=== PATIENT | male | born 1970 | race Hispanic/Latino ===

== ENCOUNTER 2018-10-18 01:01 | Emergency (ER) | payer OTHER ==
[2018-10-18 02:13] LABS: #Eosinphils 0.5 thou/uL (0.0-0.7); #Lymphocytes 1.2 thou/uL (1.20-3.40); #Monocytes 0.6 thou/uL (0.11-0.59); #Neutrophils 5.6 thou/uL (1.40-6.50); %Basophils 0.2 % (0.0-1.0); %Eosinophils 6.7 % (0.0-10.0); %Lymphocytes 15.4 % (21.0-51.0); %Neutrophils 70.8 % (42.0-75.0); Hemoglobin 8.3 g/dL (14.0-18.0); Mean Corpuscular HGB CONC 33.1 g/dL (32.0-36.0); Mean Corpuscular Hemoglobin 30.9 pg (27.0-31.0); Mean Corpuscular Volume 93.5 fL (78.0-98.0); Mean Platelet Volume 7.4 fL (7.4-10.4); Platelet Count 201 thou/uL (130-400); RBC Distribution Width 12.1 % (11.5-14.5); Red Blood Cell (RBC) Count 2.69 mill/uL (4.70-6.10)
[2018-10-18 02:33] LABS: ALT (SGPT) 17 U/L (8-55); AST (SGOT) 27 U/L (5-34); Albumin 2.8 g/dL (3.5-5.0); Alkaline Phosphatase 171 U/L (40-150); Anion Gap 12 mmol/L (10-20); BUN (Urea Nitrogen) 63 mg/dL (8.9-20.6); Bilirubin, Total 0.2 mg/dL (0.2-1.2); Calc. Creatinine Clearance 0 mL/min (70-130); Calcium 8.1 mg/dL (7.8-10.44); Carbon Dioxide 20 mmol/L (22-29); Chloride 107 mmol/L (98-107); Estimated GFR-MDRD 9; Globulin 2.9 g/dL (2.4-3.5); Glucose 67 mg/dL (70-105); Potassium 4.2 mmol/L (3.5-5.1); Protein, Total 5.7 g/dL (6.0-8.3); Sodium 135 mmol/L (136-145)
[2018-10-18] MEDS ORDERED: hydrALAZINE 25 MG TAB ONE (03:04)
== END 2018-10-18 04:43 | disposition home or self-care (01) ==
LOC: ERS 01:01
DX: E11.649 Type 2 diabetes mellitus with hypoglycemia without coma (principal); E11.319 Type 2 diabetes mellitus with unspecified diabetic retinopathy without macular edema; I10 Essential (primary) hypertension; Z79.84 Long term (current) use of oral hypoglycemic drugs; Z79.899 Other long term (current) drug therapy
CPT/HCPCS: 36416; 80053; 85025; 99283

== ENCOUNTER → 2019-07-02 | Day surgery (SDC) | payer BC, MEDICARE ==
[2019-06-29 10:52] VITALS: BMI 27.8
[~2019-07-02] MED LIST: Acetaminophen 500 MG TAB ONE; Iopamidol 370 76% 100 ML VIAL ONE; hydrALAZINE 20 MG/ML VIAL ONE
[2019-07-02 06:57] LABS: #Eosinphils 0.9 thou/uL (0.0-0.7); #Lymphocytes 1.1 thou/uL (1.20-3.40); #Monocytes 1.4 thou/uL (0.11-0.59); #Neutrophils 8.1 thou/uL (1.40-6.50); %Basophils 0.1 % (0.0-1.0); %Eosinophils 7.8 % (0.0-10.0); %Lymphocytes 9.9 % (21.0-51.0); %Monocytes 11.9 % (0.0-10.0); %Neutrophils 70.4 % (42.0-75.0); Hemoglobin 10.3 g/dL (14.0-18.0); Mean Corpuscular Hemoglobin 29.5 pg (27.0-31.0); Mean Corpuscular Volume 89.4 fL (78.0-98.0); Mean Platelet Volume 7.2 fL (7.4-10.4); Platelet Count 240 thou/uL (130-400); RBC Distribution Width 13.6 % (11.5-14.5); White Blood Cell (WBC) Count 11.5 thou/uL (4.8-10.8)
[2019-07-02 07:16] LABS: ALT (SGPT) 15 U/L (8-55); AST (SGOT) 12 U/L (5-34); Albumin 2.9 g/dL (3.5-5.0); Alkaline Phosphatase 157 U/L (40-110); Anion Gap 20 mmol/L (10-20); BUN (Urea Nitrogen) 85 mg/dL (8.9-20.6); Bilirubin, Total 0.4 mg/dL (0.2-1.2); Calc. Creatinine Clearance 8 mL/min (70-130); Calcium 7.2 mg/dL (7.8-10.44); Carbon Dioxide 22 mmol/L (22-29); Chloride 99 mmol/L (98-107); Estimated GFR-MDRD 4; Globulin 3.3 g/dL (2.4-3.5); Glucose 108 mg/dL (70-105); Potassium 3.7 mmol/L (3.5-5.1); Protein, Total 6.2 g/dL (6.0-8.3); Sodium 137 mmol/L (136-145)
== END ==
LOC: CCL 06:14
PROVIDERS: ATTEND Internal Medicine Cardiovascular Disease
PROC: 4A023N7 Measurement of Cardiac Sampling and Pressure, Left Heart, Percutaneous Approach (ICD-10-PCS; principal; 2019-07-02)
PROC: B2111ZZ Fluoroscopy of Multiple Coronary Arteries using Low Osmolar Contrast (ICD-10-PCS; principal; 2019-07-02)
DX: I25.10 Atherosclerotic heart disease of native coronary artery without angina pectoris (principal); I42.9 Cardiomyopathy, unspecified; I13.2 Hypertensive heart and chronic kidney disease with heart failure and with stage 5 chronic kidney disease, or end stage renal disease; E11.21 Type 2 diabetes mellitus with diabetic nephropathy; E11.22 Type 2 diabetes mellitus with diabetic chronic kidney disease; N18.6 End stage renal disease; I50.9 Heart failure, unspecified; E78.5 Hyperlipidemia, unspecified; Z79.899 Other long term (current) drug therapy
CPT/HCPCS: 36415; 76942; 80053; 85025; 93454; C1760; C1769; J0360; J1644; Q9967

== ENCOUNTER 2020-01-08 10:55 | Inpatient (IN) | payer BC, MEDICARE, OTHER ==
[~2020-01-08 10:55] MED LIST changes: -Acetaminophen 500 MG TAB ONE; +Heparin 10,000 UNITS/ 10 ML VIAL ONE; -Iopamidol 370 76% 100 ML VIAL ONE; -hydrALAZINE 20 MG/ML VIAL ONE
[2020-01-08] MEDS ORDERED: Acetaminophen 650 MG Suppository PR PRN (18:10)
[2020-01-08] MEDS ORDERED: Acetaminophen 325 MG TAB PO PRN (18:10)
[2020-01-08 18:28] LABS: #Eosinphils 0.5 thou/uL (0.0-0.7); #Lymphocytes 1.1 thou/uL (1.20-3.40); #Monocytes 0.8 thou/uL (0.11-0.59); #Neutrophils 6.6 thou/uL (1.40-6.50); %Basophils 0.5 % (0.0-1.0); %Eosinophils 5.2 % (0.0-10.0); %Lymphocytes 11.8 % (21.0-51.0); %Monocytes 9.3 % (0.0-10.0); %Neutrophils 73.2 % (42.0-75.0); Hemoglobin 11.4 g/dL (14.0-18.0); Mean Corpuscular HGB CONC 31.4 g/dL (32.0-36.0); Mean Corpuscular Hemoglobin 28.9 pg (27.0-31.0); Mean Corpuscular Volume 92.2 fL (78.0-98.0); Platelet Count 198 thou/uL (130-400); RBC Distribution Width 15.5 % (11.5-14.5); Red Blood Cell (RBC) Count 3.93 mill/uL (4.70-6.10); White Blood Cell (WBC) Count 9.1 thou/uL (4.8-10.8)
[2020-01-08 18:37] LABS: INR-International Normal Ratio 1.2; PTT 38.8 sec (22.9-36.1); Prothrombin Time 15.5 sec (12.0-14.7)
[2020-01-08 18:50] LABS: ALT (SGPT) 45 U/L (8-55); AST (SGOT) 30 U/L (5-34); Albumin 2.1 g/dL (3.5-5.0); Alkaline Phosphatase 299 U/L (40-110); Anion Gap 17 mmol/L (10-20); BUN (Urea Nitrogen) 45 mg/dL (8.9-20.6); Bilirubin, Total 0.4 mg/dL (0.2-1.2); Calc. Creatinine Clearance 0 mL/min (70-130); Calcium 7.4 mg/dL (7.8-10.44); Carbon Dioxide 26 mmol/L (22-29); Chloride 97 mmol/L (98-107); Estimated GFR-MDRD 7; Globulin 3.9 g/dL (2.4-3.5); Glucose 107 mg/dL (70-105); Magnesium 1.4 mg/dL (1.6-2.6); Potassium 4.6 mmol/L (3.5-5.1); Sodium 135 mmol/L (136-145)
[2020-01-08 19:29] VITALS: BMI 27.8
[2020-01-08] MEDS ORDERED: Dextrose 5% in Water 1,000 ML IV PRN (20:01)
[2020-01-08] MEDS ORDERED: Dextrose 50% Abboject 50 ML SYRINGE SLOW IVP PRN (20:01)
[2020-01-08] MEDS ORDERED: HumaLOG 300 UNITS/3 ML VIAL SC PRN ×2 (20:01)
--- NOTE | 2020-01-08 20:45 | PDOC.HHP ---
Hospitalist HPI - History of Present Illness Right 2nd 3rd and toe gangrene History of Present Illness: Patient seen by Dr. Mena today for follow-up of right 2nd and 3rd toe infections. He was referred to the hospital for admission as it appeared he developed gangrene and would require an amputation. Patient recently underwent an attempt at improving circulation in the right lower extremity via atherectomy with ballooning, done by Dr. Olivo on 11/29/2019. He was noted to have complete occlusion distally and said to be a poor candidate for revascularization. He has gradual worsening in the wounds with increased purulent weeping and now necrotic appearance. Of note he was recently treated for peritonitis and has been on antibiotics (ceftazadime and gentamicin) given at home with daily draining of fluid from his peritoneal catheter. He is under the care of Dr. House for ESRD and has been on peritoneal dialysis for a year. ROS: He reports having generalized fatigue but still remains semi-active at home. He walks around without any shortness of breath on exertion. Denies any chest pain. Has not had any recent fevers, chills or sweats. No headaches or dizziness. He reports mild abdominal discomfort at present due to not having peritoneal fluid drained yet today. Complains of fluctuating bowel movements which is chronic for him. He has chronic diarrhea with occasional episodes of diarrhea. Denies any melena or bright red blood in his stools. Has long standing lower leg edema. He still makes some urine. All other review of systems are negative. PAST MEDICAL HISTORY: 1. Diabetes mellitus, type 2. 2. Diabetic retinopathy with loss of vision in his left eye. 3. Diabetic neuropathy. 4. Peripheral arterial disease. 5. ESRD on PD, under the care of Dr. House. 6. CAD. 7. ISCMO. 8. Hyperlipidemia. 9. Peritonitis, currently on antibiotics, due to complete on 01/16/2020 (Gentamicin and Ceftazadime). 10. Hypertension. PAST SURGICAL HISTORY: 1. Left tractional retinal detachment. 2. Peritoneal dialysis catheter placement. 3. Renal cyst removed, 10/15/2019. 4. LHC 06/2019. 5. Renal cyst biopsy and ablation for focal area of RCC 10/15/2019. SOCIAL HISTORY: Patient lives at home with his family. His primary animal care giver is his daughter who assists with his medical care at home. FAMILY HISTORY: Father was diagnosed with diabetes. ALLERGIES: No known drug allergies. CURRENT MEDICATIONS: 1. Aspirin 81 mg PO daily. 2. Atorvastatin 40 mg PO daily. 3. Calcitriol 0.25 mcg PO daily. 4. Carvedilol PO daily. 5. Hydralazine 50 mg PO TID. 6. Lanthanum Carbonate 500 mg PO TID. 7. Losartan 100 mg PO daily. 8. K-Dur. 9. Timolol QAM. 10. Gentamicin via peritoneal catheter. 11. Ceftazadine via peritoneal catheter. - Exam General Appearance: NAD, awake alert Eye: PERRL, anicteric sclera ENT: normocephalic atraumatic, no oropharyngeal lesions, moist mucosa Neck: supple Heart: RRR, diminshed peripheral pulses (in bilateral feet) Respiratory: CTAB, no wheezes, no rales, no ronchi, normal chest expansion, no tachypnea Gastrointestinal: soft, no guarding, no rigidity, distended (mild, with peritoneal catheter in place, no erythema or discharge at insertion site.) Extremities: 2+ LE edema (involving bilateral legs and feet) Extremities - other findings: Dry Necrotic appearance to Rt lateral 1st toe, entire 2nd,3rd & 4th toes. Skin: no rashes Neurological: cranial nerve grossly intact (except reduced sensation in bi lateral feet due to neuropathy), normal sensation to touch, no weakness Musculoskeletal: normal tone, normal strength, no muscle wasting Psychiatric: normal affect, normal behavior, A&O x 3 Hospitalist Results - Labs Result Diagrams: 01/08/20 18:14 01/08/20 18:14 Lab results: WBC 9.1 thou/uL (4.8-10.8) 01/08/20 18:14 Hgb 11.4 g/dL (14.0-18.0) L 01/08/20 18:14 Hct 36.3 % (42.0-52.0) L 01/08/20 18:14 MCV 92.2 fL (78.0-98.0) 01/08/20 18:14 Plt Count 198 thou/uL (130-400) 01/08/20 18:14 Neutrophils % 73.2 % (42.0-75.0) 01/08/20 18:14 Sodium 135 mmol/L (136-145) L 01/08/20 18:14 Potassium 4.6 mmol/L (3.5-5.1) 01/08/20 18:14 Chloride 97 mmol/L (98-107) L 01/08/20 18:14 Carbon Dioxide 26 mmol/L (22-29) 01/08/20 18:14 BUN 45 mg/dL (8.9-20.6) H 01/08/20 18:14 Creatinine 7.97 mg/dL (0.7-1.3) H 01/08/20 18:14 Glucose 107 mg/dL (70-105) H 01/08/20 18:14 Calcium 7.4 mg/dL (7.8-10.44) L 01/08/20 18:14 Total Bilirubin 0.4 mg/dL (0.2-1.2) 01/08/20 18:14 AST 30 U/L (5-34) 01/08/20 18:14 ALT 45 U/L (8-55) 01/08/20 18:14 Alkaline Phosphatase 299 U/L (40-110) H 01/08/20 18:14 Serum Total Protein 6.0 g/dL (6.0-8.3) 01/08/20 18:14 Albumin 2.1 g/dL (3.5-5.0) L 01/08/20 18:14 Hospitalist H&P A/P - Problem (1) Gangrene of toe of right foot Code(s): I96 - GANGRENE, NOT ELSEWHERE CLASSIFIED Status: Acute Assessment and Plan: Per Dr. Mena, patient will undergo amputation likely tomorrow evening. Has advised boot fitting and consult for Dr. Olivo. Wound care consulted as well. (2) Peripheral arterial disease Code(s): I73.9 - PERIPHERAL VASCULAR DISEASE, UNSPECIFIED Status: Chronic (3) Bilateral lower extremity edema Code(s): R60.0 - LOCALIZED EDEMA Status: Chronic Assessment and Plan: BNP added onto labs. Will obtain bilateral venous doppler. (4) Peritonitis associated with peritoneal dialysis Status: Chronic Assessment and Plan: Consult placed to Dr. Lozada. Patient due to complete antibiotics on 01/16/2020. (5) ESRD on peritoneal dialysis Code(s): N18.6 - END STAGE RENAL DISEASE; Z99.2 - DEPENDENCE ON RENAL DIALYSIS Status: Chronic Assessment and Plan: Consult placed to Dr. House, nephrology, for continued PD. (6) Diabetes mellitus, type II Status: Chronic Qualifiers: Diabetes mellitus complication detail: with diabetic retinopathy Assessment and Plan: Monitor glucose. Initiate sliding scale. (7) Hypertension Code(s): I10 - ESSENTIAL (PRIMARY) HYPERTENSION Status: Chronic Assessment and Plan: Monitor BP. Reconcile home medications once verified. (8) Hyperlipidemia Code(s): E78.5 - HYPERLIPIDEMIA, UNSPECIFIED Status: Chronic Assessment and Plan: Resume home medications once verified. - Plan Plan: Will obtain baseline labs and baseline EKG. Surrogate decision maker is his : Sary Palafox.
[2020-01-08] MEDS ORDERED: Magnesium 2 GM/50 ML 2 GM in Premix Bag 1 BAG IVPB SCH (22:00)
[2020-01-08] MEDS ORDERED: Carvedilol 25 MG TAB PO SCH (23:45)
[2020-01-08] MEDS ORDERED: hydrALAZINE 25 MG TAB PO SCH (23:45)
--- NOTE | 2020-01-09 02:01 | CON ---
DATE OF CONSULTATION: 01/08/2020 He is currently admitted in-house patient in room 4433 in the [facility]. I do not have this patient's medical record number. PREOPERATIVE DIAGNOSIS: Gangrene 2nd and 3rd digits, right foot. HISTORY OF PRESENT ILLNESS: Mr. Palafox is a 49-year-old established office patient of mine admitted to [facility] today for gangrene of 2nd and 3rd digits, right foot. The patient has a history of diabetes and end-stage renal disease with peritoneal dialysis under the care of Dr. Chaves, Nephrology at [facility]. The patient is currently being treated for several months now for a gangrene of the right forefoot. Initially, the patient was seen for ulceration on the 2nd digit, right foot, which eventually progressed to become gangrene on the 2nd and 3rd digits of the right foot. The patient was treated in the office last few months with Betadine-soaked dressings. He underwent an angioplasty of the right lower extremity on November 29, [address] Anoop Olivo, Cardiovascular at [facility]. The patient is for the last 3 weeks being treated with IV antibiotics for an active peritoneal infection, which the course of treatment will end on January 10, this Tuesday. The patient is currently being treated with gentamicin and ceftazidime IV antibiotics. The patient is being admitted today for workup on the right forefoot for amputation of the 2nd and 3rd digits, right foot. PAST MEDICAL HISTORY: Includes heart disease, kidney disease, hypertension and diabetes. ALLERGIES: NO DRUG ALLERGIES. MEDICATIONS: Noted in chart. SURGICAL HISTORY: Includes eye surgery, cyst removed from kidney disease. SOCIAL HISTORY: Denies alcohol and tobacco use. FAMILY HISTORY: Positive for diabetes. REVIEW OF SYSTEMS: Noted in chart. PHYSICAL EXAMINATION: Podiatry lower extremity examination Vascular status: The patient is noted to have 1/4 dorsalis pedis and nonpalpable posterior tibial pulses on the left foot. On the right foot, 0/4 posterior tibial and 0/4 dorsalis pedis pulses. Cap refill time for the left foot is 3 seconds, digits 1 through 5. For the right foot, capillary refill time to the right great toe and 4th and 5th digits is 3-4 seconds. There is ischemic gangrene, black dry, necrotic, mummified tissue, black gangrene noted on the 2nd and 3rd digits of the right foot. [id number] edema noted to both extremities. Cyanotic, blue dusky 4th digit right foot with peeling skin, yet still viable, pinkish in nature noted to underlying skin. The right forefoot MPJ area also shows dusky cyanosis skin coloration. Overall, both feet are shiny, atrophic, thin, pigmentary changes, rubor on dependency, pallor on elevation, absent hair growth, cold in nature. Mycotic nails, , irregular yellow in nature. Neurologically epicritic sensation is absent, protective threshold with a monofilament 10 g [place] is reduced. Proprioception is reduced, bilateral feet MUSCULOSKELETAL: The patient has wrecked his feet. Range of motion of the ankle, subtalar, midtarsal joints are pain-free and within normal limits. Some stiffness noted to the ankle joint and midtarsal, subtalar joint secondary to edema and stiffness. Muscle strength is 5/5 overall to lower extremity muscle groups. The patient ambulates with cane. Dermatologically as mentioned above, dry, mummified black gangrene involving total 2nd and 3rd digits of the right foot. No wet gangrene noted. No acute signs of cellulitis or underlying abscess to indicate acute infection noted on examination. The 4th digit right foot shows mild cyanosis, skin peeling with underlying pinkish skin viable in nature at this time. The right hallux is pink, book binder nature with no ischemic signs noted. ASSESSMENT: Gangrene 2nd and 3rd digits, right foot. Type 2 diabetes with neuropathy and peripheral vascular disease. PLAN: The plan at the time is the patient is admitted to [facility] for amputations of the 2nd and 3rd digits of the right foot as soon as possible. The patient was admitted under the medical care of the hospital group, specifically Dr. Marshall, who I had a telephone conversation with. Consultation was made for in-house dialysis for nephrology. Consultation was made with Dr. Anoop young to assess patient once more prior to surgery. A consent form was reviewed and discussed in detail today pertaining to amputation of the digits on the right foot. The possible complications related to surgery were discussed in detail with the patient to include delayed healing, nonhealing, further proximal amputation and possible [id number] amputation, right lower extremity infection, pain, or increased swelling. The patient at this time is to continue IV antibiotics and further antibiotic administration will be determined either by the Nephrology group or consultation to Dr. Lozada at discretion of hospitalist. As stated, the plan at this time is for the patient to undergo surgery as soon as possible given the green light by the hospitalist group. If there are any questions or concerns concerning this history and physical consultation, please call me at [phone]. Job ID: [id number]
[2020-01-09] MEDS ORDERED: Amlodipine 5 MG TAB PO SCH (04:15)
[2020-01-09 05:48] LABS: #Basophils 0.1 thou/uL (0.0-0.2); #Eosinphils 0.4 thou/uL (0.0-0.7); #Lymphocytes 0.8 thou/uL (1.20-3.40); #Monocytes 0.8 thou/uL (0.11-0.59); #Neutrophils 5.6 thou/uL (1.40-6.50); %Basophils 0.7 % (0.0-1.0); %Eosinophils 5.8 % (0.0-10.0); %Lymphocytes 10.9 % (21.0-51.0); %Monocytes 10.6 % (0.0-10.0); Mean Corpuscular HGB CONC 31.2 g/dL (32.0-36.0); Mean Corpuscular Hemoglobin 29.2 pg (27.0-31.0); Mean Corpuscular Volume 93.6 fL (78.0-98.0); Platelet Count 179 thou/uL (130-400); RBC Distribution Width 15.3 % (11.5-14.5); Red Blood Cell (RBC) Count 3.44 mill/uL (4.70-6.10); White Blood Cell (WBC) Count 7.8 thou/uL (4.8-10.8)
[2020-01-09 05:52] LABS: INR-International Normal Ratio 1.4; PTT 44.8 sec (22.9-36.1); Prothrombin Time 16.7 sec (12.0-14.7)
[2020-01-09 06:08] LABS: Lactic Acid 1.2 mmol/L (0.5-2.2)
[2020-01-09 06:12] LABS: Anion Gap 15 mmol/L (10-20); BUN (Urea Nitrogen) 43 mg/dL (8.9-20.6); Calc. Creatinine Clearance 15 mL/min (70-130); Carbon Dioxide 25 mmol/L (22-29); Chloride 99 mmol/L (98-107); Estimated GFR-MDRD 8; Glucose 217 mg/dL (70-105); Magnesium 1.7 mg/dL (1.6-2.6); Potassium 4.3 mmol/L (3.5-5.1); Sodium 135 mmol/L (136-145)
[2020-01-09] MEDS ORDERED: CEFTAZIDIME FORTAZ IVPB SCH (07:45)
[2020-01-09] MEDS ORDERED: GENTAMICIN IVPB SCH (07:45)
[2020-01-09] MEDS ORDERED: PERITON DIALYSIS IVPB SCH (07:45)
[2020-01-09] MEDS: Aspirin 81 mg Enteric Coated Tablet PO SCH (08:34)
[2020-01-09] MEDS: Carvedilol 25 MG TAB PO SCH ×2 (08:35→20:17)
[2020-01-09] MEDS: Clopidogrel Bisulfate 75 MG TAB PO SCH (08:36)
[2020-01-09] MEDS: Calcitriol 0.25 MCG CAP PO SCH (08:36)
[2020-01-09] MEDS: hydrALAZINE 25 MG TAB PO SCH ×3 (08:37→20:16)
[2020-01-09] MEDS: Losartan 25 MG TAB PO SCH (08:39)
[2020-01-09] MEDS: Isosorbide Dinitrate 20 MG TAB PO SCH ×3 (08:39→20:17)
[2020-01-09] MEDS: Timolol 0.5% Ophth Soln 5 ml Bottle R EYE SCH (08:40)
[2020-01-09] MEDS: Potassium Chloride 20 MEQ TAB PO SCH ×2 (08:40→20:17)
[2020-01-09] MEDS: Lanthanum Carbonate 500 mg Tablet PO SCH ×3 (08:45→18:33)
[2020-01-09] MEDS ORDERED: Prevnar 13-Val Conj/PF 0.5 ML SYRINGE IM ONE (09:00)
[2020-01-09] MEDS ORDERED: Non-Formulary Item 1 EACH (Isosorbide Dinitrate [Isordil] 10 MG Tab) PO SCH (09:00)
--- NOTE | 2020-01-09 09:16 | RAD ---
Exam: Chest one view HISTORY:Preoperative exam. Surgical clearance. Comparison: None. FINDINGS: Cardiac silhouette:Magnification of the cardiac silhouette due to portable technique. Aorta: Unremarkable Pulmonary vessels: Normal Costophrenic angles: Clear LUNGS: No masses or consolidation. Pneumothorax: None Osseous abnormalities: None IMPRESSION: No acute cardiopulmonary process.
--- NOTE | 2020-01-09 11:42 | CON ---
DATE OF CONSULTATION: 01/09/2020 HISTORY OF PRESENT ILLNESS: Mr. Palafox is a 49-year-old male with ESRD and followed up by his primary casino controller, Dr. Chaves, at [facility]. He was admitted due to an infection of the second and third toes - right. He is not a candidate for any further revascularization as per note by his allocation analyst. He will have a planned second and third toe amputation with Dr. Mena. We are being consulted for his management of his ESRD and peritoneal dialysis. The patient was recently diagnosed to have a peritonitis - Pseudomonas. He is currently on a regimen of intraperitoneal gentamicin and ceftazidime. He voices no new complaints today. He denies any chest pain or shortness of breath. No fever or chills. REVIEW OF SYSTEMS: Appetite is fair. Energy level is fair. Positive for toe gangrene, second and third toes. No chest pain or shortness of breath. No abdominal pain. No nausea. No vomiting. No hematochezia. No melena. No hematemesis. MEDICATIONS: 1. Aspirin 81 mg tablet daily. 2. Atorvastatin 40 mg at bedtime. 3. Calcitriol 0.25 mcg daily. 4. Carvedilol 1 tablet daily. 5. Hydralazine 50 mg p.o. t.i.d. 6. Renvela p.o. t.i.d. with meals. 7. Losartan 100 mg daily. 8. K-Dur daily. 9. Timolol as directed. 10. Gentamicin 54 mg intraperitoneally every day. 11. Ceftazidime 2 g intraperitoneally daily. PAST MEDICAL HISTORY: 1. ESRD from diabetic nephropathy. 2. Type-2 diabetes mellitus. 3. Diabetic retinopathy. 4. History of proteinuria. 5. Hyperlipidemia. 6. Hypertension. 7. Coronary artery disease. 8. Peripheral vascular disease. 9. Recently, status post peritonitis - to be completed on January 16, 2020. 10. History of renal carcinoma. PAST SURGICAL HISTORY: 1. Status post PD catheter placement. 2. Status post left eye surgery. 3. Status post removal of renal cyst on October 15, 2019. 4. Status post ablation of renal-cell carcinoma on October 15, 2019. SOCIAL HISTORY: The patient is . He lives in [place]. He has 1 child, 22 years old. No smoking. No alcohol intake. No IV drug abuse. He previously worked as a pest control employee. Education, high school. Active lifestyle. No blood transfusion. PHYSICAL EXAMINATION: VITAL SIGNS: Blood pressure is noted at 186/75, heart rate 76, respiratory rate 18, temperature 98.2, O2 saturation 96%. GENERAL: The patient is awake, alert, comfortable, not in overt distress. SKIN: Adequate turgor. HEENT: Pinkish conjunctivae. Anicteric sclerae. No neck mass. No carotid bruits. No JVD. CHEST: No deformities. LUNGS: Clear breath sounds. No crackles. No wheezing. HEART: Normal sinus rhythm. No murmur. No gallops. No rubs. ABDOMEN: Globular, soft, nontender. No masses. Positive for PD catheter. EXTREMITIES: No edema. Positive for right foot dressing. NEUROLOGICAL: Moving all extremities. No tremors. Oriented to 3 spheres. LABORATORY DATA: Laboratories of January 09, 2020; white count 7.8, hemoglobin 10. Sodium 135, potassium 4.3, chloride 99, carbon dioxide 25, BUN 43, creatinine 7.62, glucose 217, calcium 7, magnesium 1.7. ASSESSMENT AND PLAN: 1. End-stage renal disease. We will continue current CCPD regimen. We are incorporating his gentamicin and Fortaz 2 g intraperitoneally, which will stay for 6 hours and then we will withdraw back the PD fluid. As per recommendation by his primary casino controller, antibiotics for his peritonitis will continue till January 15. 2. Peritonitis, on intraperitoneal antibiotics. Will check gentamycin level 3. Infected second and third toe - right - for planned toe amputation by Dr. Mena. We will continue to follow up with this patient for his maintenance CCPD. Addendum - Gentamycin trough level noted at 4.0 - will discontinue gentamycin this am - Target trough level of less robi n 2.0 Job ID: [id number] [facility] [place]
[2020-01-09 12:02] LABS: SARS-CoV-2 MS2 Positive; SARS-CoV-2 N Gene Negative; SARS-CoV-2 S Gene Negative; SARS-CoV-2 by NAA Not Detected (NotDetected); SARS-CoV-2 orf1ab Negative
[2020-01-09] MEDS ORDERED: PHENYLEPHRINE-NS 100 MCG/ML 10 ML SYRINGE ONE (15:20)
[2020-01-09] MEDS ORDERED: Ondansetron PF 4 MG/2 ML Vial ONE (15:20)
[2020-01-09] MEDS ORDERED: PROPOFOL 200 MG/20 ML VIAL ONE (15:20)
[2020-01-09] MEDS ORDERED: Lidocaine 1% PF 5 ML VIAL ONE (15:20)
[2020-01-09] MEDS ORDERED: EPHEDRINE 25 MG/5 ML SYRINGE ONE (15:20)
[2020-01-09] MEDS ORDERED: Lidocaine 1% (PF) 30 ML VIAL ONE (17:12)
--- NOTE | 2020-01-09 17:47 | CON ---
DATE OF CONSULTATION: REASON FOR CONSULTATION: Cardiac management. HISTORY OF PRESENT ILLNESS: Mr. Palafox is a 49-year-old gentleman, whom I have seen and evaluated in the past. He has severe small-vessel coronary artery disease in addition to a cardiomyopathy. He recently developed ulceration of his right foot and is in need of amputation. He has no current symptoms suggesting angina. No chest pain, pressure, shortness of breath, or associated symptoms. PAST MEDICAL HISTORY: End-stage renal disease, diabetes mellitus, hypertension, CAD, ischemic cardiomyopathy, and severe PVD. HOME MEDICATIONS: Include 1. Calcium acetate. 2. Isosorbide. 3. Hydralazine. 4. Coreg. 5. Losartan. 6. Atorvastatin. 7. Cephalexin. 8. Aspirin. 9. Plavix. SOCIAL HISTORY: No tobacco or alcohol use. REVIEW OF SYSTEMS: A 10-point review of systems is reviewed and as above, otherwise negative PHYSICAL EXAMINATION: GENERAL: Patient is a pleasant gentleman, who is in no acute distress. The patient appears their stated age. VITAL SIGNS: Blood pressure 179/62, pulse 79, and temperature 98.3. NEUROLOGIC: The patient is alert and oriented x3 with no focal neurologic deficits. HEENT: Sclerae without icterus. Mouth has moist mucous membranes with normal pallor. NECK: No JVD. Carotid upstroke brisk. No bruits bilaterally. LUNGS: Clear to auscultation with unlabored respirations. BACK: No scoliosis or kyphosis. CARDIAC: Regular rate and rhythm with normal S1 and S2. No S3 or S4 noted. No significant rubs, murmurs, thrills, or gallops noted throughout the precordium. PMI is not displaced. There is no parasternal heave. ABDOMEN: Soft, nontender, nondistended. No peritoneal signs present. No hepatosplenomegaly. No abnormal striae. EXTREMITIES: Nonpalpable popliteal pulses bilaterally. Right foot appears bandaged. SKIN: No gross abnormalities. PERTINENT LABORATORY DATA: Hemoglobin 10, hematocrit 32.2. IMPRESSION: 1. Severe peripheral vascular disease. 2. Ulceration. 3. Ischemic cardiomyopathy. 4. End-stage renal disease. RECOMMENDATIONS: From a CV standpoint, Mr. Palafox is stable. He has no new symptoms of angina. He does have small vessel disease. He is not felt to be low risk for general anesthesia, but not felt to be high or prohibitive risk given no symptoms. We will proceed with surgery. The benefits outweigh the risks. Job ID: [id number]
[2020-01-09] MEDS ORDERED: Midazolam HCl 2 mg/2 ml Vial ONE (17:58)
--- NOTE | 2020-01-09 18:33 | PDOC.HOSPP ---
- Subjective Encounter Date: 01/09/20 Encounter Time: 11:20 Subjective: Pt seen for followup re: toe gangrene. Denies chest pain or shortness of breath. - Objective Vital Signs & Weight: Vital Signs (12 hours) Temp Pulse Resp BP BP BP Pulse Ox 01/09/20 16:00 98.3 F 79 16 143/78 H 179/62 H 94 L 01/09/20 15:06 78 01/09/20 12:25 97.9 F 78 18 159/57 H 94 L 01/09/20 12:00 97.9 F 01/09/20 08:40 76 186/75 H 01/09/20 08:37 76 186/76 H 01/09/20 08:24 98.2 F 76 18 186/76 H 96 01/09/20 08:00 98.2 F 76 96 01/09/20 06:39 98.3 F 98 14 157/58 H 98 01/09/20 06:38 79 Weight Admit Weight 200 lb Weight 200 lb I&O: 01/08/20 01/09/20 01/10/20 06:59 06:59 06:59 Intake Total 690 300 Output Total 1860 Balance 690 -1560 Result Diagrams: 01/09/20 05:25 01/09/20 05:25 Additional Labs: Accuchecks 01/09/20 01/09/20 01/08/20 17:18 04:02 22:55 POC Glucose 82 214 H 168 H I reviewed labs and [facility] Hospitalist ROS - Review of Systems Constitutional: denies: fever, chills, sweats, weakness, malaise Cardiovascular: denies: chest pain, palpitations, orthopnea, paroxysmal noc. dyspnea, edema, light headedness Gastrointestinal: denies: nausea, vomiting, abdominal pain, diarrhea, constipation, melena, hematochezia Genitourinary: denies: dysuria, frequency, incontinence, hematuria, retention Musculoskeletal: reports: foot pain Skin: reports: lesions Neurological: denies: weakness, numbness, incoordination, change in speech, confusion, seizures - Medication Medications: Active Medications Generic Name Dose Route Start Last Admin Trade Name Freq PRN Reason Stop Dose Admin Acetaminophen 650 mg 01/08/20 18:10 01/09/20 00:09 Acetaminophen 325 Mg Tab PO 650 mg Q4H PRN Administration Headache/Fever/Mild Pain (1-3) Aspirin 81 mg 01/09/20 09:00 01/09/20 08:34 Aspirin 81 Mg Enteric Coated Tablet PO Not Given DAILY [facility] Calcitriol 0.25 mcg 01/09/20 09:00 01/09/20 08:36 Calcitriol 0.25 Mcg Cap PO Not Given [id number] [facility] Carvedilol 25 mg 01/09/20 09:00 01/09/20 08:35 Carvedilol 25 Mg Tab PO Not Given BID [facility] Clopidogrel Bisulfate 75 mg 01/09/20 09:00 01/09/20 08:36 Clopidogrel Bisulfate 75 Mg Tab PO Not Given DAILY [facility] Hydralazine HCl 50 mg 01/09/20 09:00 01/09/20 15:06 Hydralazine 25 Mg Tab PO Not Given TID [facility] Isosorbide Dinitrate 20 mg 01/09/20 09:00 01/09/20 15:06 Isosorbide Dinitrate 20 Mg Tab PO Not Given TID [facility] Lanthanum Carbonate 500 mg 01/09/20 08:00 01/09/20 15:05 Lanthanum Carbonate 500 Mg Tablet PO Not Given TID-WM [facility] Losartan Potassium 100 mg 01/09/20 09:00 01/09/20 08:39 Losartan 25 Mg Tab PO Not Given DAILY [facility] Potassium Chloride 20 meq 01/09/20 09:00 01/09/20 08:40 Potassium Chloride 20 Meq Tab PO Not Given BID [facility] Timolol Maleate 1 drop 01/09/20 09:00 01/09/20 08:40 Timolol 0.5% Ophth Soln 5 Ml Bottle R EYE Not Given QAM [facility] - Exam General Appearance: awake alert Eye: anicteric sclera ENT: no oropharyngeal lesions Neck: supple, symmetric, no thyromegaly, no lymphadenopathy Heart: RRR Respiratory: CTAB, no wheezes, no rales, no ronchi Gastrointestinal: soft, non-tender, non-distended, normal bowel sounds Extremities: no clubbing Skin: normal turgor Skin - other findings: wound as documented Musculoskeletal: no muscle wasting Psychiatric: normal affect, normal behavior, A&O x 3 Hosp A/P - Plan (1) Gangrene of toe of right foot Code(s): I96 - GANGRENE, NOT ELSEWHERE CLASSIFIED Status: Acute Assessment and Plan: Pt to go for 6toe amputation today. Cardiology service consulted for preop clearance. ID service consulted. (2) Peripheral arterial disease Code(s): I73.9 - PERIPHERAL VASCULAR DISEASE, UNSPECIFIED Status: Chronic (3) Bilateral lower extremity edema Code(s): R60.0 - LOCALIZED EDEMA Status: Chronic Assessment and Plan: BNP added onto labs. Will obtain bilateral venous doppler. (4) Peritonitis associated with peritoneal dialysis Status: Chronic Assessment and Plan: Pt on peritoneal ceftazadime until Jan 16, 2020. (5) ESRD on peritoneal dialysis Code(s): N18.6 - END STAGE RENAL DISEASE; Z99.2 - DEPENDENCE ON RENAL DIALYSIS Status: Chronic Assessment and Plan: Nephrology following for maintenance dialysis. (6) Diabetes mellitus, type II Status: Chronic Qualifiers: Diabetes mellitus complication detail: with diabetic retinopathy Assessment and Plan: Continue accuchecks and insulin sliding scale. (7) Hypertension Code(s): I10 - ESSENTIAL (PRIMARY) HYPERTENSION Status: Chronic Assessment and Plan: Monitor vital signs and titrate antihypertensives as needed. (8) Hyperlipidemia Code(s): E78.5 - HYPERLIPIDEMIA, UNSPECIFIED Status: Chronic Assessment and Plan: continue Lipitor
[2020-01-09] MEDS ORDERED: Fentanyl 100 MCG/2 ML VIAL ONE (18:47)
[2020-01-09] MEDS ORDERED: Neomycin-Polymyxin 1 ML AMP ONE (19:11)
[2020-01-09] MEDS ORDERED: traMADol HCl 50 MG TAB PO PRN (19:41)
--- NOTE | 2020-01-09 19:55 | RAD ---
RIGHT FOOT RADIOGRAPHS THREE VIEWS: 01/09/20 PROVIDED CLINICAL HISTORY: Amputation. FINDINGS: There is no evidence for fracture or other acute osseous abnormality. Absence of the second and third digits, compatible with the provided clinical history. Alignment appears anatomic. Joint spaces appe ar preserved. Extensive vascular calcifications are seen. IMPRESSION: As above. POS: COREY
--- NOTE | 2020-01-09 20:06 | CON ---
DATE OF CONSULTATION: 01/09/2020 REASON FOR CONSULT: Right foot gangrene. HISTORY OF PRESENT ILLNESS: A 49-year-old, history of type 2 diabetes; retinopathy; end-stage renal disease, on peritoneal dialysis; and recent diagnosis of CAPD associated peritonitis, who is supposed to complete gentamicin and ceftazidime treatment given through peritoneal dialysis fluid in about two days, who has developed gangrene of the right forefoot. The patient underwent revascularization by Dr. Olivo on November 29. It consisted of successful atherectomy, percutaneous transluminal angioplasty of distal popliteal artery. He did have marked stenosis of the anterior tibial artery and complete occlusion of the remainder. The process of gangrene is mostly dry gangrene and involves the second, third, and fourth toes of the right foot. Some extension of the gangrene towards the distal right aspect of the mid foot/forefoot area. Patient is obviously upset by the development. He denies any headaches. He has lost vision in the left eye from detachment. No oral cavity symptoms. No shortness of breath, cough, or chest pain. The pain associated with the peritonitis has improved. He does not have urinary output. PAST MEDICAL HISTORY: Type 2 diabetes; retinopathy; retinal detachment; neuropathy; peripheral vascular disease; end-stage renal disease, on peritoneal dialysis; CAPD associated peritonitis, undergoing treatment with gentamicin and ceftazidime; and hypertension. The ceftazidime and gentamicin treatments are given through dwell. SURGICAL HISTORY: PD catheter placement and renal cyst removal. SOCIAL HISTORY: Lives in the area with family. FAMILY HISTORY: Father, diabetes. ALLERGIES: NONE. CURRENT MEDICATIONS: 1. Lipitor. 2. Calcitriol. 3. Coreg. 4. Plavix. 5. Insulin. PHYSICAL EXAMINATION: VITAL SIGNS: T-max 99.1. Other vital signs with elevation of systolic at 159, pulse 78, respirations 18, and O2 sat 94% to 96%. SKIN: Shows the area of gangrene of the second, third, and fourth toes right foot with some epidermolysis at the proximal aspect and the dorsal aspect of the right foot. A little bit of erythema in the mid foot region dorsal aspect. No lymphadenopathy. HEENT: Ocular movements with opacification of the left intraocular media. The right pupillary reaction is preserved. NECK: Supple. No jugular vein distention. LUNGS: Symmetric air entry. HEART: S1, S2. Regular rate. No S3 or S4. ABDOMEN: Soft, nondistended, and nontender. The PD catheter exit site appears normal. EXTREMITIES: No joint inflammatory activity. The popliteal pulses are 2+ and could not feel any dorsalis pedis though in either side. NEUROLOGIC: He is awake, oriented, pretty despondent from this development. LABORATORIES: His white cell count is 9.1 and 7.8, hemoglobin 10, MCV 93, platelets 179, 72% neutrophils. INR 1.4. Creatinine 7.62. Magnesium 1.4. AST and ALT are normal. Alkaline phosphatase 299 and albumin 2.1. COVID not detected. Cultures from the foot are pending, but those are I do not know whether quality sample. There were many gram-negative rods identified in the Gram stain and rare wbc's. It is probably a swab which is of less value than hopefully the specimen from the amputation will be. IMAGING: The only imaging study is a chest x-ray with no acute cardiopulmonary process. ASSESSMENT: 1. Type 2 diabetes with neuropathy, retinopathy, and peripheral vascular disease with occlusion below the trifurcation. The popliteal occlusion has been improved after intervention. 2. Gangrene, mostly dry gangrene of the right foot second, third, and fourth toes. 3. Continuous ambulatory peritoneal dialysis associated peritonitis. DISCUSSION: The patient will complete treatment for the CAPD peritonitis in about 2 days. After that, we will review the results of the cultures from the amputation specimen and determine the need for continuation of antimicrobial therapy. It is very likely to be needed because of the peripheral vascular disease and the high risk for persistence/recrudescence of infection at the amputation site. He is at high risk for the below-knee amputation, even the above-knee amputation in view of the severity of the trifurcation level disease. Job ID: [id number]
[2020-01-09] MEDS: Atorvastatin Calcium 40 MG TAB PO SCH (20:16)
[2020-01-09] MEDS: CEFTAZIDIME FORTAZ IVPB SCH (22:34)
[2020-01-09] MEDS: PERITON DIALYSIS IVPB SCH (22:34)
--- NOTE | 2020-01-10 01:01 | OP ---
DATE OF PROCEDURE: 01/09/2020 LOCATION: [facility] in [place], in-house patient. PREOPERATIVE DIAGNOSES: 1. Gangrene, 2nd and 3rd digits of the right foot. 2. Diabetes with peripheral vascular disease. 3. End-stage renal disease with peritoneal dialysis. POSTOPERATIVE DIAGNOSES: 1. Gangrene, 2nd and 3rd digits of the right foot. 2. Diabetes with peripheral vascular disease. 3. End-stage renal disease with peritoneal dialysis. PROCEDURE PERFORMED: Amputation of the 2nd and 3rd digits of the right foot. ANESTHESIA: General anesthesia with local anesthesia composing 10 mL of 1% lidocaine plain to the right mid foot. HEMOSTASIS: None. ESTIMATED BLOOD LOSS: Minimal. DESCRIPTION OF PROCEDURE: Under mild sedation, the patient was brought into the operating room and placed on the operating room table in a supine position. No tourniquet was used. General anesthesia was performed and as an adjunct 10 mL of 1% lidocaine plain were injected into the right mid foot for local anesthesia purposes. The foot was scrubbed, prepped, and draped in the usual aseptic manner. No Esmarch bandage was utilized. Attention at this time was directed to the base of the 2nd and 3rd digits of the right foot where a large fishmouth incision was made incorporating both digits. The incision was deepened down to bone. The 2nd and 3rd MPJ joints were identified and the digits were disarticulated, amputated with a sterile 15 blade under careful meticulous dissection to preserve as much soft tissue structure as possible. Upon removal of gangrenous 2nd and 3rd digits, right foot, the 2nd and 3rd metatarsal bones had a healthy viable bone appearance. The surrounding soft tissue was granular fibrotic in nature. No significant bleeding was noted at this level. Minimal oozing and blood flow noted. Please note, the 4th digit on the right foot was noted to have a dusky cyanotic appearance with superficial peeling to the skin with underlying viable pink tissue and preservation of the digit. The lateral aspect of the right hallux was noted to be slightly cyanotic and purple discoloration. Cultures, samples were taken of the base of the proximal phalanx of the 2nd digit, right foot. Bone cultures were done, aerobic, anaerobic, Gram stain, acid-fast, and fungal including bone biopsy, soft tissue cultures at the 2nd MPJ right foot were also taken to include an aerobic, anaerobic, fungal, and acid-fast. The flexor and extensor tendons were identified and a tenotomy was performed. The wound opened in nature at this time was flushed extensively and irrigated with a Simpulse lavage machine using 1000 mL bag with G.U. irrigation. Upon flushing of the wound, the area was packed with quarter-inch Nu Gauze plain 4x4s, a loose Kerlix roll, and an Joe wrap, non-constrictive, very loose in nature to preserve the surgical site. The patient tolerated the procedure and the general anesthesia well. The patient was transferred to the PACU unit at this time with vital signs stable and vascular status to the remaining toes 1, 4, and 5 noted on the right foot with the clinical appearance earlier in the note. Following a period of postoperative monitoring, the patient will be taken back to his room with postop orders including resume medications prior to surgery. The dressing is to be maintained dry and intact. Wound Care Team at [facility] will be consulted tomorrow to evaluate and treat the wound, to start wound VAC therapy and possible HBO therapy. To avoid excessive ambulation, to bear weight on the right foot with postop shoe with bathroom privileges, to elevate the right foot when at rest. No ice. To continue IV antibiotics, gentamicin and Fortaz. The nurses station is to contact me for all postoperative followup care and if any problems or questions arise throughout the night. A prescription for pain management tramadol 50 mg one tablet orally every 6 hours p.r.n. pain was written for. Dr. Anoop Olivo, Cardiovascular, will be notified tomorrow of the surgery to visit the patient to see if further revascularization is possible on the right foot. If you have any questions or concerns regarding this operative report, please call me at [phone] or [phone] and that is my office number. Job ID: [id number]
[2020-01-10 04:05] LABS: #Eosinphils 0.5 thou/uL (0.0-0.7); #Lymphocytes 0.9 thou/uL (1.20-3.40); #Monocytes 0.9 thou/uL (0.11-0.59); #Neutrophils 6.3 thou/uL (1.40-6.50); %Basophils 0.2 % (0.0-1.0); %Eosinophils 5.4 % (0.0-10.0); %Lymphocytes 10.6 % (21.0-51.0); %Monocytes 10.2 % (0.0-10.0); %Neutrophils 73.7 % (42.0-75.0); Hemoglobin 10.2 g/dL (14.0-18.0); Mean Corpuscular Hemoglobin 29.4 pg (27.0-31.0); Mean Corpuscular Volume 94.8 fL (78.0-98.0); Mean Platelet Volume 7.6 fL (7.4-10.4); Platelet Count 173 thou/uL (130-400); RBC Distribution Width 15.3 % (11.5-14.5); Red Blood Cell (RBC) Count 3.46 mill/uL (4.70-6.10); White Blood Cell (WBC) Count 8.5 thou/uL (4.8-10.8)
[2020-01-10] MEDS: Aspirin 81 mg Enteric Coated Tablet PO SCH (08:49)
[2020-01-10] MEDS: Losartan 25 MG TAB PO SCH (08:49)
[2020-01-10] MEDS: Carvedilol 25 MG TAB PO SCH ×2 (08:49→21:08)
[2020-01-10] MEDS: Clopidogrel Bisulfate 75 MG TAB PO SCH (08:50)
[2020-01-10] MEDS: Isosorbide Dinitrate 20 MG TAB PO SCH ×3 (08:50→21:08)
[2020-01-10] MEDS: Potassium Chloride 20 MEQ TAB PO SCH ×2 (08:50→21:08)
[2020-01-10] MEDS: hydrALAZINE 25 MG TAB PO SCH ×3 (08:50→21:08)
[2020-01-10] MEDS: Lanthanum Carbonate 500 mg Tablet PO SCH ×4 (08:50→17:42)
[2020-01-10] MEDS: Timolol 0.5% Ophth Soln 5 ml Bottle R EYE SCH (08:51)
--- NOTE | 2020-01-10 09:14 | PRG ---
DATE OF SERVICE: 01/10/2020 SUBJECTIVE: Mr. Palafox is a 49-year-old male, who was admitted for gangrenous 2nd and 3rd toes - right. We are following up this patient for management of his ESRD. He is currently being treated for peritonitis. He is on intraperitoneal ceftazidime and gentamicin. Intraperitoneal gentamicin is on hold due to a level of 4. 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 He did undergo an amputation of the 2nd and 3rd right toes yesterday. No other complaints today. No chest pain or shortness of breath. OBJECTIVE: VITAL SIGNS: Blood pressure 163/62, heart rate 83, respiratory rate 18, temperature 98.6, and O2 saturation 96%. GENERAL: The patient is awake, alert, comfortable, not in distress. SKIN: Adequate turgor. HEENT: He has a pinkish conjunctivae. Anicteric sclerae. NECK: No neck mass. No carotid bruits. No JVD. CHEST: No deformities. LUNGS: Clear breath sounds. HEART: Normal sinus rhythm. No murmurs. No gallops. No rubs. ABDOMEN: Globular, soft, and nontender. No masses. Positive for PD catheter. EXTREMITIES: No edema noted with a right foot dressing. MEDICATIONS: Of January 10, 2020, was reviewed. LABORATORY DATA: Laboratories of January 10, 2020; white count 8.5, hemoglobin 10.2. On January 09, 2020; BUN 43, creatinine 7.62, and potassium 4.3. Gentamicin level of January 10, 2020; 4.3. ASSESSMENT AND PLAN: 1. Peritonitis - the patient to finish his course of intraperitoneal antibiotics tomorrow. Holding gentamicin due to the level of 4.3. Continue ceftazidime intraperitoneally 2 g, clinically asymptomatic. No evidence of peritonitis. 2. End-stage renal disease. Continue current CCPD regimen. No changes will be made with the current peritoneal dialysis regimen. He is tolerating said treatment. 3. Peripheral vascular disease - Cardiology to re-evaluate this patient. The patient did undergo amputation of the right 2nd and 3rd toes due to gangrene. Agree with current management. Recheck CBC and basic metabolic panel in a.m. as well as the gentamicin level. Job ID: [id number] Addendum: Repeat PD fluid still showed WBC cell count of 148 ; segmenters - 14%; PD fluid reported as clear this am - this may reflect improving peritonitis. Plan: hold PD catheter removal; repeat PD fluid cell count; consult Dr. Lozada for a second opinion. Case was discussed with his primary Podiatry Assistant - Dr. Chaves. JEREMI
[2020-01-10] MEDS ORDERED: Heparin 10,000 UNITS/ 10 ML VIAL ONE (11:04)
[2020-01-10] MEDS ORDERED: Lidocaine 1% (PF) 30 ML VIAL ONE (11:05)
[2020-01-10] MEDS ORDERED: Heparin 0 ML ONE ×2 (11:05→11:12)
--- NOTE | 2020-01-10 17:12 | ULT ---
BILATERAL UPPER EXTREMITY VENOUS DOPPLER ULTRASOUND FOR VEIN MAPPING: Date: 01/10/2020 HISTORY: End-stage renal disease. FINDINGS/IMPRESSION: RIGHT UPPER EXTREMITY: The right cephalic vein measures 5.2 mm in the proximal arm, 6.0 mm in the mid arm, 3.7 mm in the dis arabella arm, 4.1 mm in the antecubital fossa, 3.7 mm in the proximal forearm, 4.7 mm in the mid forearm, and 4.5 mm in the distal forearm. The right basilic vein measures 5.1 mm in the proximal arm, 5.2 mm in the mid arm, 4.8 mm in the dist al arm, 4.8 mm in the antecubital fossa, 4.0 mm in the proximal forearm, 4.9 mm in the mid forearm, a nd 3.6 mm in the distal forearm. The right brachial artery measures 3.8 mm, radial artery measures 3.0 mm, and ulnar artery measures 2 .4 mm. LEFT UPPER EXTREMITY: The left cephalic vein measures 4.5 mm in the proximal arm, 3.3 mm in the mid arm, 4.7 mm in the dist al arm, 4.5 mm in the antecubital fossa, 3.6 mm in the proximal forearm, 3.3 mm in the mid forearm, a nd 2.5 mm in the distal forearm. The left basilic vein measures 6.0 mm in the proximal arm, 5.2 mm in the mid arm, 5.1 mm in the dista l arm, 3.2 mm in the antecubital fossa, 3.6 mm in the proximal forearm, 3.4 mm in the mid forearm, an d 2.3 mm in the distal forearm. The left brachial artery measures 4.4 mm, radial artery measures 2.7 mm, and ulnar artery measures 1. 7 mm. POS: OFF
--- NOTE | 2020-01-10 17:48 | PDOC.HOSPP ---
- Subjective Encounter Date: 01/10/20 Encounter Time: 10:00 Subjective: Patient seen for follow-up regarding toe gangrene. Denies chest pain, shortness of breath, fevers or chills. - Objective Vital Signs & Weight: Vital Signs (12 hours) Temp Pulse Resp BP BP Pulse Ox 01/10/20 14:15 81 01/10/20 12:35 98.6 F 81 18 144/83 H 95 01/10/20 08:51 83 163/62 H 01/10/20 08:50 83 163/62 H 01/10/20 08:35 98 01/10/20 08:07 98.6 F 83 18 163/62 H 96 Weight Admit Weight 200 lb Weight 200 lb I&O: 01/09/20 01/10/20 01/11/20 06:59 06:59 06:59 Intake Total 690 300 Output Total 2340 Balance 690 -2040 Result Diagrams: 01/10/20 03:56 01/09/20 05:25 Additional Labs: Accuchecks 01/10/20 01/10/20 01/09/20 11:43 04:10 19:52 POC Glucose 166 H 204 H 74 I reviewed patient's labs and MAR Hospitalist ROS - Review of Systems Cardiovascular: denies: chest pain, palpitations, orthopnea, paroxysmal noc. dyspnea, edema, light headedness Gastrointestinal: denies: nausea, vomiting, abdominal pain, diarrhea, constipation, melena, hematochezia - Medication Medications: Active Medications Generic Name Dose Route Start Last Admin Trade Name Jackyq PRN Reason Stop Dose Admin Acetaminophen 650 mg 01/08/20 18:10 01/09/20 00:09 Acetaminophen 325 Mg Tab PO 650 mg Q4H PRN Administration Headache/Fever/Mild Pain (1-3) Aspirin 81 mg 01/09/20 09:00 01/10/20 08:49 Aspirin 81 Mg Enteric Coated Tablet PO 81 mg DAILY BETI Administration Atorvastatin Calcium 40 mg 01/09/20 21:00 01/09/20 20:16 Atorvastatin Calcium 40 Mg Tab PO 40 mg HS BETI Administration Calcitriol 0.25 mcg 01/09/20 09:00 01/09/20 08:36 Calcitriol 0.25 Mcg Cap PO Not Given [id number] [facility] Carvedilol 25 mg 01/09/20 09:00 01/10/20 08:49 Carvedilol 25 Mg Tab PO 25 mg BID BETI Administration Clopidogrel Bisulfate 75 mg 01/09/20 09:00 01/10/20 08:50 Clopidogrel Bisulfate 75 Mg Tab PO 75 mg DAILY BETI Administration Hydralazine HCl 50 mg 01/09/20 09:00 01/10/20 14:15 Hydralazine 25 Mg Tab PO 50 mg TID BETI Administration Ceftazidime 2 gm/ Peritoneal 2,000 mls @ 0 mls/hr 01/09/20 18:00 01/09/20 22:34 Dialysis Solution IVPB Not Given 1800 BETI As Directed Isosorbide Dinitrate 20 mg 01/09/20 09:00 01/10/20 14:15 Isosorbide Dinitrate 20 Mg Tab PO 20 mg TID BETI Administration Lanthanum Carbonate 500 mg 01/09/20 08:00 01/10/20 17:42 Lanthanum Carbonate 500 Mg Tablet PO 500 mg TID-WM BETI Administration Losartan Potassium 100 mg 01/09/20 09:00 01/10/20 08:49 Losartan 25 Mg Tab PO 100 mg DAILY BETI Administration Potassium Chloride 20 meq 01/09/20 09:00 01/10/20 08:50 Potassium Chloride 20 Meq Tab PO 20 meq BID BETI Administration Timolol Maleate 1 drop 01/09/20 09:00 01/10/20 08:51 Timolol 0.5% Ophth Soln 5 Ml Bottle R EYE Not Given QAM BETI - Exam General Appearance: awake alert Eye: anicteric sclera ENT: moist mucosa Neck: supple Heart: RRR Respiratory: CTAB Gastrointestinal: soft, non-tender Extremities: no cyanosis Skin: no rashes Musculoskeletal: no muscle wasting Psychiatric: normal affect, normal behavior Hosp A/P - Plan (1) Gangrene of toe of right foot Code(s): I96 - GANGRENE, NOT ELSEWHERE CLASSIFIED Status: Acute Assessment and Plan: Patient underwent to amputation yesterday. ID service following. (2) Peripheral arterial disease Code(s): I73.9 - PERIPHERAL VASCULAR DISEASE, UNSPECIFIED Status: Chronic (3) Bilateral lower extremity edema Code(s): R60.0 - LOCALIZED EDEMA Status: Chronic Assessment and Plan: BNP added onto labs. (4) Peritonitis associated with peritoneal dialysis Status: Chronic Assessment and Plan: Continue peritoneal ceftazadime until Jan 16, 2020. (5) ESRD on peritoneal dialysis Code(s): N18.6 - END STAGE RENAL DISEASE; Z99.2 - DEPENDENCE ON RENAL DIALYSIS Status: Chronic Assessment and Plan: maintenance dialysis per nephrology service. (6) Diabetes mellitus, type II Status: Chronic Qualifiers: Diabetes mellitus complication detail: with diabetic retinopathy Assessment and Plan: Continue accuchecks and insulin sliding scale. (7) Hypertension Code(s): I10 - ESSENTIAL (PRIMARY) HYPERTENSION Status: Chronic Assessment and Plan: Monitor vital signs and titrate antihypertensives as needed. (8) Hyperlipidemia Code(s): E78.5 - HYPERLIPIDEMIA, UNSPECIFIED Status: Chronic Assessment and Plan: Patient is on Lipitor
[2020-01-10 19:21] LABS: RBC Count-Automated (BF) 147 /cu.mm; WBC/Nucleated-Auto (BF) 204 uL
[2020-01-10] MEDS: CEFTAZIDIME FORTAZ IVPB SCH (19:26)
[2020-01-10] MEDS: PERITON DIALYSIS IVPB SCH (19:26)
[2020-01-10 19:35] LABS: Body Fluid Source Peritoneal Fluid; Clarity Hazy (Clear); Tube # EDTA
[2020-01-10 19:36] LABS: BF Color Yellow
[2020-01-10 19:39] LABS: BF Segmented Neutrophils 30 %; Cell Count Non Hematic 30 %; Eosinophils 12 %; Lymphocytes 28 %
[2020-01-10] MEDS: Atorvastatin Calcium 40 MG TAB PO SCH (21:08)
--- NOTE | 2020-01-11 00:13 | HP ---
HISTORY OF PRESENT ILLNESS: Domingo Palafox is a 49-year-old male PD patient. He had a PD catheter placed at [facility] a year ago. He has been doing PD at home. He is followed by Dr. Chaves as an outpatient. The patient has developed peritonitis, has been treated with antibiotics, this is Pseudomonas peritonitis. Dr. Chaves has talked to Dr. House about removal of the PD catheter. I have been consulted to remove the PD catheter and established an HD catheter. The patient has never undergone hemodialysis, has never had an HD catheter. He has an IV in his left mid forearm. The patient is somewhat surprised when I walk in talking to him about removal of his PD catheter and establishing HD. I have told him and I will talk to Dr. House about this. Once I did, then Dr. House talked to the patient, then decision was made to not remove the PD catheter at this time. Ultrasound vein mapping has been ordered both arms, result pending. If he does require removal of his PD catheter and placement of an HD catheter, I would consider placement of a primary fistula as a backup. Somehow received a consult about a gangrenous toe Dr. Mena has performed amputation of the patient's right second and third toes. He has a wound VAC on. This was performed yesterday. Dr. Olivo on 11/30/2019 performed arteriography with successful atherectomy and AIR OPERATIONS MANAGER of the distal popliteal artery. The patient; however, has complete occlusion of his peroneal, anterior tibial, and posterior tibial pulses mid leg. He is at high risk for amputation, this has been discussed with the patient in the past, but he has been resistant today. He is hoping that this will not be necessary. Dr. Olivo has seen him this hospitalization and repeat arteriography has been planned to see if there is anything he can do to optimize his circulation as he has had progression with now gangrene of his left fourth toe, this is dry gangrene. The patient feels somewhat overwhelmed with both these issues. Dr. Olivo has also seen him from a cardiac standpoint. He has known severe small-vessel coronary artery disease in addition to cardiomyopathy. There has been no symptoms of angina. No chest pain or pressure. He is felt to be a low risk for general anesthesia for any necessary procedures. HOME MEDICATIONS: 1. Calcium acetate. 2. Isosorbide. 3. Hydralazine. 4. Coreg. 5. Losartan. 6. Atorvastatin. 7. Cephalexin. 8. Aspirin. 9. Plavix. SOCIAL HISTORY: Tobacco, none. Alcohol, none. PAST MEDICAL HISTORY: End-stage renal disease, on maintenance dialysis, peritoneal dialysis, never has had a hemodialysis, never has undergone hemodialysis, diabetes mellitus, hypertension, coronary artery disease stable, ischemic cardiomyopathy, severe PAD, status post intervention left leg, as noted above. SOCIAL HISTORY: Tobacco, alcohol, none. 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 He is somewhat depressed that he thinks he may not be able to return to work. REVIEW OF SYSTEMS: Ten-point review of systems, noncontributory. PHYSICAL EXAMINATION: VITAL SIGNS: Height 5 foot 11, 200 pounds, 27 BMI, 98.6, 81, 18, 144/83. HEENT: Head, ears, eyes, nose and throat unremarkable. LUNGS: Clear to auscultation. CARDIAC: Regular rate and rhythm without murmur or gallop. ABDOMEN: Soft, nontender. PD left lower quadrant. EXTREMITIES: Palpable femoral pulses, popliteal pulses. Wound VAC left foot, not removed. Left fourth toe, dry gangrene. No infection. ASSESSMENT/PLAN: 1. End-stage renal disease. Continue peritoneal dialysis. The patient does not want to have his PD catheter removed at this time. Ultrasound vein mapping has been obtained. Results pending. Consideration for primary fistula in the future if his PD catheter has to be removed because of Pseudomonas peritonitis, which by clinical criteria, is resolving. His abdomen is nontender. He is afebrile. He does not have any abdominal pain. 2. Diabetes mellitus. 3. Hypertension. 4. Peripheral arterial disease with right foot gangrene, followed by Podiatry, Dr. Mena at risk for amputation below the knee. Job ID: [id number]
[2020-01-11 04:33] LABS: #Eosinphils 0.5 thou/uL (0.0-0.7); #Monocytes 1.1 thou/uL (0.11-0.59); #Neutrophils 7.7 thou/uL (1.40-6.50); %Basophils 0.3 % (0.0-1.0); %Lymphocytes 9.6 % (21.0-51.0); %Monocytes 10.2 % (0.0-10.0); Hemoglobin 10.5 g/dL (14.0-18.0); Mean Corpuscular HGB CONC 31.2 g/dL (32.0-36.0); Mean Corpuscular Hemoglobin 29.5 pg (27.0-31.0); Mean Corpuscular Volume 94.3 fL (78.0-98.0); Mean Platelet Volume 7.9 fL (7.4-10.4); Platelet Count 186 thou/uL (130-400); RBC Distribution Width 15.1 % (11.5-14.5); Red Blood Cell (RBC) Count 3.57 mill/uL (4.70-6.10); White Blood Cell (WBC) Count 10.3 thou/uL (4.8-10.8)
[2020-01-11 04:55] LABS: Anion Gap 17 mmol/L (10-20); BUN (Urea Nitrogen) 41 mg/dL (8.9-20.6); Calc. Creatinine Clearance 15 mL/min (70-130); Calcium 7.1 mg/dL (7.8-10.44); Carbon Dioxide 24 mmol/L (22-29); Chloride 100 mmol/L (98-107); Estimated GFR-MDRD 8; Glucose 169 mg/dL (70-105); Potassium 4.9 mmol/L (3.5-5.1); Sodium 136 mmol/L (136-145)
[2020-01-11] MEDS: Carvedilol 25 MG TAB PO SCH ×2 (06:16→20:26)
[2020-01-11] MEDS ORDERED: Lidocaine 1% (PF) 30 ML VIAL ONE (07:34)
[2020-01-11] MEDS: Isosorbide Dinitrate 20 MG TAB PO SCH ×3 (08:00→20:27)
[2020-01-11] MEDS: Aspirin 81 mg Enteric Coated Tablet PO SCH (08:00)
[2020-01-11] MEDS: Lanthanum Carbonate 500 mg Tablet PO SCH ×3 (08:00→18:14)
[2020-01-11] MEDS: Timolol 0.5% Ophth Soln 5 ml Bottle R EYE SCH (08:00)
[2020-01-11] MEDS: Clopidogrel Bisulfate 75 MG TAB PO SCH (08:00)
[2020-01-11] MEDS: hydrALAZINE 25 MG TAB PO SCH ×3 (08:00→20:26)
[2020-01-11] MEDS ORDERED: Heparin 10,000 UNITS/ 10 ML VIAL ONE (09:00)
[2020-01-11] MEDS ORDERED: Nitroglycerin 0.4 MG TAB (25 Tab Bottle) SL PRN (09:07)
[2020-01-11] MEDS ORDERED: Sodium Chloride 0.9% 200 ML IV PRN (09:07)
[2020-01-11] MEDS ORDERED: Acetaminophen/Codeine 30-300mg Tablet PO PRN (09:07)
[2020-01-11] MEDS ORDERED: Iopamidol 370 76% 50 ML VIAL FS ONE (09:28)
[2020-01-11] MEDS ORDERED: Iopamidol 370 76% 100 ML VIAL ONE (09:28)
[2020-01-11] MEDS ORDERED: hydrALAZINE 20 MG/ML VIAL ONE (10:12)
--- NOTE | 2020-01-11 11:18 | OP ---
DATE OF PROCEDURE: 01/11/2020 PREPROCEDURE DIAGNOSES: Nonhealing ulcer and gangrenous toes with severe peripheral vascular disease. POSTPROCEDURE DIAGNOSIS: Severe peripheral vascular disease. PROCEDURES PERFORMED: 1. Aortogram. 2. Unilateral aortofemoral runoff. 3. Successful ENGINEERING ADMINISTRATOR only to the mid anterior tibial artery. COMPLICATIONS: None. ESTIMATED BLOOD LOSS: Less than 20 mL. DETAILS: The patient was draped and prepped in sterile fashion. I left femoral artery under ultrasound guidance. Micropuncture sheath was employed. A 5-Nigerien sheath was placed. A Contra catheter was placed to the aorta with aortogram performed. This was placed then in the contralateral segment successfully. It was then exchanged for a glide catheter and placed into the distal SFA. FINDINGS: Aorta has no significant stenosis or aneurysm. There was heavy calcification present. Right lower extremity - common iliac, external iliac, and common femoral artery have no significant disease. The SFA was free of significant disease. The popliteal artery was free of significant disease. The anterior tibial artery has a significant stenosis present in the mid region. This was estimated to 80%. This was then followed by 80% stenosis that leads into an occlusion noted near the ankle. The peroneal artery was patent to the mid shaft of the leg, then occludes. The posterior tibial artery was completely occluded and reconstitutes in the mid shaft of the leg. INTERVENTIONAL PROCEDURE: The 5-Nigerien sheath was exchanged for a 5-Nigerien shuttle sheath. This was placed into the popliteal artery successfully. Heparin was used for anticoagulation. A Victory wire was initially used. Multiple attempts were performed trying to cross the complete occlusion near the ankle. This was unsuccessful. It was then decided to proceed with ENGINEERING ADMINISTRATOR only of the mid anterior tibial artery. This was successful. One inflation of a 3 x 20 mm balloon was performed to 8 atmospheres for 2 minutes. There was excellent angiographic result at the end of study with no immediate complications. Job ID: [id number]
[2020-01-11] MEDS: Calcitriol 0.25 MCG CAP PO SCH (14:01)
[2020-01-11] MEDS: Losartan 25 MG TAB PO SCH (14:02)
[2020-01-11] MEDS: Potassium Chloride 20 MEQ TAB PO SCH ×2 (14:02→20:27)
[2020-01-11] MEDS: Acetaminophen/Codeine 30-300mg Tablet PO PRN ×2 (14:03→20:28)
[2020-01-11] MEDS ORDERED: HYDROcodone/Acetaminophen 5/325 mg Tablet PO PRN ×2 (17:33)
--- NOTE | 2020-01-11 17:39 | PDOC.HOSPP ---
- Subjective Encounter Date: 01/11/20 Encounter Time: 17:37 Subjective: Patient seen for follow-up regarding toe gangrene. He reports pain over the right moore. He denies any chest pain or shortness of breath. - Objective Vital Signs & Weight: Vital Signs (12 hours) Temp Pulse Resp BP BP BP Pulse Ox 01/11/20 16:00 98.0 F 77 16 138/56 L 98 01/11/20 14:03 80 164/77 H 01/11/20 13:45 98.5 F 78 16 163/73 H 97 01/11/20 08:00 78 01/11/20 07:35 95 01/11/20 07:17 98.3 F 83 18 183/73 H 95 Weight Admit Weight 200 lb Weight 200 lb I&O: 01/10/20 01/11/20 01/12/20 06:59 06:59 06:59 Intake Total 300 960 Output Total 2340 950 Balance -2040 10 Result Diagrams: 01/11/20 04:27 01/11/20 04:27 Additional Labs: Accuchecks 01/11/20 01/11/20 01/10/20 17:18 04:30 20:07 POC Glucose 90 158 H 162 H 01/10/20 16:49 POC Glucose 99 I reviewed patient's labs and MAR Hospitalist ROS - Review of Systems Respiratory: denies: cough, shortness of breath, SOB with excertion, pleuritic pain, wheezing Cardiovascular: denies: chest pain, palpitations, orthopnea, paroxysmal noc. dyspnea, edema, light headedness Musculoskeletal: reports: leg pain - Medication Medications: Active Medications Generic Name Dose Route Start Last Admin Trade Name Freq PRN Reason Stop Dose Admin Acetaminophen 650 mg 01/08/20 18:10 01/09/20 00:09 Acetaminophen 325 Mg Tab PO 650 mg Q4H PRN Administration Headache/Fever/Mild Pain (1-3) Acetaminophen/Codeine Phosphate 2 tab 01/11/20 09:07 01/11/20 14:03 Acetaminophen/Codeine 30-300mg Tablet PO 2 tab Q4H PRN Administration Moderate Pain (4-6) Aspirin 81 mg 01/09/20 09:00 01/11/20 08:00 Aspirin 81 Mg Enteric Coated Tablet PO Not Given DAILY BETI Atorvastatin Calcium 40 mg 01/09/20 21:00 01/10/20 21:08 Atorvastatin Calcium 40 Mg Tab PO 40 mg HS BETI Administration Calcitriol 0.25 mcg 01/09/20 09:00 01/11/20 14:01 Calcitriol 0.25 Mcg Cap PO 0.25 mcg [id number] BETI Administration Carvedilol 25 mg 01/09/20 09:00 01/11/20 06:16 Carvedilol 25 Mg Tab PO 25 mg BID BETI Administration Clopidogrel Bisulfate 75 mg 01/09/20 09:00 01/11/20 08:00 Clopidogrel Bisulfate 75 Mg Tab PO Not Given DAILY BETI Hydralazine HCl 50 mg 01/09/20 09:00 01/11/20 14:03 Hydralazine 25 Mg Tab PO 50 mg TID BETI Administration Ceftazidime 2 gm/ Peritoneal 2,000 mls @ 0 mls/hr 01/09/20 18:00 01/10/20 19:26 Dialysis Solution IVPB Not Given 1800 BETI As Directed Isosorbide Dinitrate 20 mg 01/09/20 09:00 01/11/20 14:03 Isosorbide Dinitrate 20 Mg Tab PO 20 mg TID BETI Administration Lanthanum Carbonate 500 mg 01/09/20 08:00 01/11/20 12:00 Lanthanum Carbonate 500 Mg Tablet PO Not Given TID-WM BETI Losartan Potassium 100 mg 01/09/20 09:00 01/11/20 14:02 Losartan 25 Mg Tab PO 100 mg DAILY BETI Administration Potassium Chloride 20 meq 01/09/20 09:00 01/11/20 14:02 Potassium Chloride 20 Meq Tab PO 20 meq BID BETI Administration Timolol Maleate 1 drop 01/09/20 09:00 01/11/20 08:00 Timolol 0.5% Ophth Soln 5 Ml Bottle R EYE Not Given QAM BETI - Exam General Appearance: awake alert Eye: anicteric sclera ENT: normocephalic atraumatic Neck: supple, no thyromegaly Heart: RRR Respiratory: CTAB Gastrointestinal: soft, non-tender Extremities: no cyanosis Skin - other findings: Right toe gangrene Musculoskeletal: no muscle wasting Psychiatric: normal affect, normal behavior Hosp A/P - Plan (1) Gangrene of toe of right foot Code(s): I96 - GANGRENE, NOT ELSEWHERE CLASSIFIED Status: Acute Assessment and Plan: Status post toe amputation. Patient continues to have pain. Add PRN [place]. Patient has wound VAC. (2) Peripheral arterial disease Code(s): I73.9 - PERIPHERAL VASCULAR DISEASE, UNSPECIFIED Status: Chronic Patient underwent successful VINYL FLOORING INSTALLER of mid anterior tibial artery. (3) Bilateral lower extremity edema Code(s): R60.0 - LOCALIZED EDEMA Status: Chronic Assessment and Plan: Check BNP tomorrow. (4) Peritonitis associated with peritoneal dialysis Status: Chronic Assessment and Plan: Continue peritoneal ceftazadime until Jan 16, 2020. Infectious diseases and nephrology service is following. (5) ESRD on peritoneal dialysis Code(s): N18.6 - END STAGE RENAL DISEASE; Z99.2 - DEPENDENCE ON RENAL DIALYSIS Status: Chronic Assessment and Plan: maintenance dialysis per nephrology service. (6) Diabetes mellitus, type II Status: Chronic Qualifiers: Diabetes mellitus complication detail: with diabetic retinopathy Assessment and Plan: Continue accuchecks and insulin sliding scale. Reasonable control of blood sugars. (7) Hypertension Code(s): I10 - ESSENTIAL (PRIMARY) HYPERTENSION Status: Chronic Assessment and Plan: Blood pressures elevated at times, likely secondary to pain. Monitor vital signs and titrate antihypertensives as needed. (8) Hyperlipidemia Code(s): E78.5 - HYPERLIPIDEMIA, UNSPECIFIED Status: Chronic Assessment and Plan: Continue Lipitor Infectious diseases, general surgery and cardiology services following. 2 amputation was done by podiatry service.
[2020-01-11] MEDS: CEFTAZIDIME FORTAZ IVPB SCH (19:45)
[2020-01-11] MEDS: PERITON DIALYSIS IVPB SCH (19:45)
[2020-01-11] MEDS: Atorvastatin Calcium 40 MG TAB PO SCH (20:27)
--- NOTE | 2020-01-11 20:56 | PRG ---
DATE OF SERVICE: 01/11/2020 SUBJECTIVE: Mr. Palafox is a 49-year-old male with ESRD and currently on CCPD. He continues to receive intraperitoneal Fortaz for his peritonitis. Gentamicin is on hold due to a most recent gentamicin level of 3 on January 11, 2020. He also had an aortogram with unilateral aortofemoral runoff. Successful MIXED LIVESTOCK FARMER was done only up to the mid anterior tibial artery on the right. Attempt to revascularize to the area of complete occlusion near the ankle was not successful. The patient voices no new complaints today. No abdominal pain. No chest pain or shortness of breath. OBJECTIVE: VITAL SIGNS: Blood pressure is 138/56, heart rate 77, respiratory rate 16, temperature 98, O2 saturation 98%. GENERAL: The patient is awake, alert, comfortable, not in distress, sitting. SKIN: Adequate turgor. HEENT: He has pinkish conjunctivae. Anicteric sclerae. No neck mass. No carotid bruits. No JVD. CHEST: No deformities. LUNGS: Clear breath sounds. No wheezing. No crackles. HEART: Normal sinus rhythm. No murmur. No gallops. No rubs. ABDOMEN: Globular, soft, nontender. No masses. Positive for PD catheter. EXTREMITIES: No edema. Right foot dressing noted. MEDICATIONS: Medications of January 11, 2020, was reviewed. LABORATORY DATA: Laboratories of January 11, 2020, showed a white count of 10.3, hemoglobin 10.5, hematocrit 33.7. Sodium 136, potassium 4.9, chloride 100, carbon dioxide 24, BUN 41, creatinine 7.53, calcium 7.1. Gentamicin level was 3.3. ASSESSMENT/PLAN: 1. Peritonitis. Continuing current Fortaz at 2 g intraperitoneally. This will be left in the peritoneum for at least 6 hours. We are re-dosing him again this evening. Gentamicin on hold since the gentamicin level is more than adequate at 3.3. 2. Right toe infection-status post amputation. The patient had an aortogram and successful MIXED LIVESTOCK FARMER was done only up to the mid anterior tibial artery. 3. Borderline anemia. Continue to observe. With regard to the patient's peritonitis, the repeat PD fluid showed to have at least 200 wbc. However, no organisms were sent and the culture so far is negative. With the persistent leukocytosis, it may suggest still ongoing infection. I did discuss with the patient about removing the PD catheter, but he is still declining and was still wanting to think about it. 4. Overall agree with current management. Recheck roseline GOMEZ met in a.m. Job ID: [id number]
[2020-01-12 05:46] LABS: #Eosinphils 0.5 thou/uL (0.0-0.7); #Lymphocytes 0.9 thou/uL (1.20-3.40); #Monocytes 1.1 thou/uL (0.11-0.59); #Neutrophils 7.3 thou/uL (1.40-6.50); %Basophils 0.3 % (0.0-1.0); %Eosinophils 4.8 % (0.0-10.0); %Lymphocytes 9.4 % (21.0-51.0); %Monocytes 11.1 % (0.0-10.0); %Neutrophils 74.4 % (42.0-75.0); Hemoglobin 10.3 g/dL (14.0-18.0); Mean Corpuscular HGB CONC 31.5 g/dL (32.0-36.0); Mean Corpuscular Volume 95.3 fL (78.0-98.0); Platelet Count 178 thou/uL (130-400); RBC Distribution Width 15.1 % (11.5-14.5); Red Blood Cell (RBC) Count 3.43 mill/uL (4.70-6.10); White Blood Cell (WBC) Count 9.8 thou/uL (4.8-10.8)
[2020-01-12 06:08] LABS: Anion Gap 16 mmol/L (10-20); BUN (Urea Nitrogen) 43 mg/dL (8.9-20.6); Calc. Creatinine Clearance 14 mL/min (70-130); Calcium 7.2 mg/dL (7.8-10.44); Carbon Dioxide 23 mmol/L (22-29); Chloride 100 mmol/L (98-107); Estimated GFR-MDRD 7; Glucose 165 mg/dL (70-105); Potassium 5.6 mmol/L (3.5-5.1); Sodium 133 mmol/L (136-145)
[2020-01-12] MEDS: Isosorbide Dinitrate 20 MG TAB PO SCH ×3 (10:36→20:19)
[2020-01-12] MEDS: hydrALAZINE 25 MG TAB PO SCH ×3 (10:37→20:18)
[2020-01-12] MEDS: Carvedilol 25 MG TAB PO SCH ×2 (10:37→20:18)
[2020-01-12] MEDS: Lanthanum Carbonate 500 mg Tablet PO SCH ×3 (10:38→19:21)
[2020-01-12] MEDS: Aspirin 81 mg Enteric Coated Tablet PO SCH (10:54)
[2020-01-12] MEDS: Timolol 0.5% Ophth Soln 5 ml Bottle R EYE SCH (11:21)
--- NOTE | 2020-01-12 11:31 | PRG ---
DATE OF SERVICE: 01/12/2020 SUBJECTIVE: Mr. Palafox is a 49-year-old male with ESRD from diabetic nephropathy, currently on CCPD. The patient recently had peritonitis and has now been treated for a complete 3 week course of Fortaz and gentamicin. He also underwent an angiogram of the right leg and this was partially successful, but there was no successful revascularization of the blood vessel going towards the right foot. The patient was told by his director software development that he will eventually need a right BKA. No new complaints today. No chest pain or shortness of breath. OBJECTIVE: VITAL SIGNS: Blood pressure is 172/77, heart rate 76, respiratory rate 20, temperature 98.6, O2 saturation 95%. GENERAL: The patient is awake, alert, supine, comfortable, not in distress. SKIN: Adequate turgor. HEENT: He has pinkish conjunctivae. Anicteric sclerae. NECK: No neck mass. No carotid bruits. No JVD. CHEST: No deformities. LUNGS: Clear breath sounds. No wheezing. No crackles. HEART: Normal sinus rhythm. No murmur. No gallops. No rubs. ABDOMEN: Globular, soft. Nontender, no masses. EXTREMITIES: No edema, no deformities. Ischemic right foot. Positive for right foot dressing. Please note, patient has a PD catheter. MEDICATIONS: January 12, 2020; white count 9.8, hemoglobin 10.3. Sodium 133, potassium 5.6, chloride 100, carbon dioxide 23, BUN 43, creatinine 8.23, glucose 165, calcium 7.2. ASSESSMENT AND PLAN: 1. End-stage renal disease. Continue current continuous ambulatory peritoneal dialysis regimen. He has finished his course of Fortaz and gentamicin. The repeat cell count still showed a white cell of 200. However, gram stain and culture were reported as no growth today. 2. Please note that previous gram stain of tissue showed gram-negative bakari and growing as Pseudomonas. 3. The patient has been advised that he eventually may need to have the peritoneal dialysis catheter pulled out. Due to the several ongoing problems with the patient, he declined to have the peritoneal dialysis catheter removed at the present time. 4. Right foot ischemia-again patient has been advised for a possible right [id number]. They are thinking about this. 5. Mild hyperkalemia. We will discontinue potassium supplementation. Job ID: [id number] [facility]
[2020-01-12] MEDS: Clopidogrel Bisulfate 75 MG TAB PO SCH (12:19)
[2020-01-12] MEDS: Losartan 25 MG TAB PO SCH (12:19)
[2020-01-12] MEDS: Potassium Chloride 20 MEQ TAB PO SCH (12:23)
[2020-01-12] MEDS ORDERED: ALPRAZolam 0.25 MG TAB PO PRN (13:02)
--- NOTE | 2020-01-12 13:08 | PDOC.HOSPP ---
- Subjective Encounter Date: 01/12/20 Encounter Time: 13:00 Subjective: Patient seen and examined for foot infection with peripheral vascular disease. Pain controlled at this time. Denies any fever, chills, nausea or vomiting. No bowel movement over the last 24 hours. - Objective Vital Signs & Weight: Vital Signs (12 hours) Temp Pulse Resp BP Pulse Ox 01/12/20 11:58 98.5 F 78 14 159/79 H 96 01/12/20 07:26 98.6 F 76 20 172/77 H 95 01/12/20 04:00 98.3 F 78 18 184/65 H 93 L Weight Admit Weight 200 lb Weight 200 lb I&O: 01/11/20 01/12/20 01/13/20 06:59 06:59 06:59 Intake Total 960 1150 Output Total 950 1368 Balance 10 1150 -1368 Result Diagrams: 01/12/20 05:33 01/12/20 05:33 Additional Labs: Accuchecks 01/12/20 01/11/20 01/11/20 05:20 22:03 17:18 POC Glucose 160 H 155 H 90 Hospitalist ROS - Review of Systems Respiratory: denies: cough, dry, shortness of breath, hemoptysis, SOB with excertion, pleuritic pain, sputum, wheezing, other Cardiovascular: denies: chest pain, palpitations, orthopnea, paroxysmal noc. dyspnea, edema, light headedness, other - Medication Medications: Active Medications Generic Name Dose Route Start Last Admin Trade Name Freq PRN Reason Stop Dose Admin Acetaminophen 650 mg 01/08/20 18:10 01/09/20 00:09 Acetaminophen 325 Mg Tab PO 650 mg Q4H PRN Administration Headache/Fever/Mild Pain (1-3) Acetaminophen/Codeine Phosphate 2 tab 01/11/20 09:07 01/11/20 20:28 Acetaminophen/Codeine 30-300mg Tablet PO 2 tab Q4H PRN Administration Moderate Pain (4-6) Aspirin 81 mg 01/09/20 09:00 01/12/20 10:54 Aspirin 81 Mg Enteric Coated Tablet PO 81 mg DAILY BETI Administration Atorvastatin Calcium 40 mg 01/09/20 21:00 01/11/20 20:27 Atorvastatin Calcium 40 Mg Tab PO 40 mg HS BETI Administration Calcitriol 0.25 mcg 01/09/20 09:00 01/11/20 14:01 Calcitriol 0.25 Mcg Cap PO 0.25 mcg [id number] BETI Administration Carvedilol 25 mg 01/09/20 09:00 01/12/20 10:37 Carvedilol 25 Mg Tab PO 25 mg BID BETI Administration Clopidogrel Bisulfate 75 mg 01/09/20 09:00 01/12/20 12:19 Clopidogrel Bisulfate 75 Mg Tab PO 75 mg DAILY BETI Administration Hydralazine HCl 50 mg 01/09/20 09:00 01/12/20 10:37 Hydralazine 25 Mg Tab PO 50 mg TID BETI Administration Ceftazidime 2 gm/ Peritoneal 2,000 mls @ 0 mls/hr 01/09/20 18:00 01/11/20 19:45 Dialysis Solution IVPB Not Given 1800 BETI As Directed Isosorbide Dinitrate 20 mg 01/09/20 09:00 01/12/20 10:36 Isosorbide Dinitrate 20 Mg Tab PO 20 mg TID BETI Administration Lanthanum Carbonate 500 mg 01/09/20 08:00 01/12/20 10:38 Lanthanum Carbonate 500 Mg Tablet PO Not Given TID-WM BETI Losartan Potassium 100 mg 01/09/20 09:00 01/12/20 12:19 Losartan 25 Mg Tab PO 100 mg DAILY BETI Administration Timolol Maleate 1 drop 01/09/20 09:00 01/12/20 11:21 Timolol 0.5% Ophth Soln 5 Ml Bottle R EYE Not Given QAM BETI - Exam General Appearance: NAD Neck: supple, no JVD Heart: RRR, no gallops Respiratory: no rales, no ronchi Gastrointestinal: non-tender, normal bowel sounds Extremities: no cyanosis Extremities - other findings: Right foot dressing with wound VAC Neurological: no new deficit Hosp A/P (1) Gangrene of toe of right foot Code(s): I96 - GANGRENE, NOT ELSEWHERE CLASSIFIED Status: Acute (2) Diabetes mellitus, type II Status: Chronic Qualifiers: Diabetes mellitus complication detail: with diabetic retinopathy (3) ESRD on peritoneal dialysis Code(s): N18.6 - END STAGE RENAL DISEASE; Z99.2 - DEPENDENCE ON RENAL DIALYSIS Status: Chronic (4) Hyperlipidemia Code(s): E78.5 - HYPERLIPIDEMIA, UNSPECIFIED Status: Chronic (5) Hypertension Code(s): I10 - ESSENTIAL (PRIMARY) HYPERTENSION Status: Chronic (6) Peripheral arterial disease Code(s): I73.9 - PERIPHERAL VASCULAR DISEASE, UNSPECIFIED Status: Chronic (7) Hyperkalemia Code(s): E87.5 - HYPERKALEMIA Status: Acute (8) Peritonitis associated with peritoneal dialysis Status: Chronic (9) Other issues per previous notes - Plan DVT proph w/heparin Continue wound care. Discontinue potassium supplementation due to hyperkalemia. Continue aspirin with Plavix. Patient declined a on possible right below-knee amputation. Continue IV antibiotics with peritoneal dialysis per nephrology. Continue wound care. Recheck labs in a.m. Treat constipation.
[2020-01-12] MEDS: CEFTAZIDIME FORTAZ IVPB SCH (18:28)
[2020-01-12] MEDS: PERITON DIALYSIS IVPB SCH (18:28)
[2020-01-12] MEDS: Atorvastatin Calcium 40 MG TAB PO SCH (20:18)
[2020-01-12] MEDS: Heparin 5,000 UNITS/ML VIAL SC SCH (20:19)
[2020-01-12] MEDS: Senokot S 8.6-50 MG TAB PO SCH (21:37)
[2020-01-13 05:48] LABS: #Eosinphils 0.4 thou/uL (0.0-0.7); #Lymphocytes 0.9 thou/uL (1.20-3.40); #Monocytes 1.2 thou/uL (0.11-0.59); #Neutrophils 6.7 thou/uL (1.40-6.50); %Basophils 0.4 % (0.0-1.0); %Eosinophils 4.5 % (0.0-10.0); %Lymphocytes 9.6 % (21.0-51.0); %Monocytes 13.2 % (0.0-10.0); %Neutrophils 72.4 % (42.0-75.0); Hemoglobin 9.9 g/dL (14.0-18.0); Mean Corpuscular HGB CONC 31.7 g/dL (32.0-36.0); Mean Corpuscular Hemoglobin 29.9 pg (27.0-31.0); Mean Corpuscular Volume 94.4 fL (78.0-98.0); Mean Platelet Volume 7.7 fL (7.4-10.4); Platelet Count 179 thou/uL (130-400); Red Blood Cell (RBC) Count 3.31 mill/uL (4.70-6.10); White Blood Cell (WBC) Count 9.3 thou/uL (4.8-10.8)
[2020-01-13 06:17] LABS: Anion Gap 14 mmol/L (10-20); BUN (Urea Nitrogen) 43 mg/dL (8.9-20.6); Calc. Creatinine Clearance 14 mL/min (70-130); Calcium 7.2 mg/dL (7.8-10.44); Carbon Dioxide 27 mmol/L (22-29); Chloride 98 mmol/L (98-107); Estimated GFR-MDRD 7; Glucose 181 mg/dL (70-105); Potassium 4.9 mmol/L (3.5-5.1); Sodium 134 mmol/L (136-145)
[2020-01-13] MEDS: Losartan 25 MG TAB PO SCH (08:56)
[2020-01-13] MEDS: Senokot S 8.6-50 MG TAB PO SCH ×2 (08:56→20:46)
[2020-01-13] MEDS: Isosorbide Dinitrate 20 MG TAB PO SCH ×3 (08:56→20:46)
[2020-01-13] MEDS: Carvedilol 25 MG TAB PO SCH ×2 (08:57→20:46)
[2020-01-13] MEDS: hydrALAZINE 25 MG TAB PO SCH ×3 (08:57→20:45)
[2020-01-13] MEDS: Lanthanum Carbonate 500 mg Tablet PO SCH ×3 (08:58→18:05)
[2020-01-13] MEDS: Saccharomyces boulardii 250 MG CAP PO SCH (11:12)
[2020-01-13] MEDS: Aspirin 81 mg Enteric Coated Tablet PO SCH (11:12)
[2020-01-13] MEDS: Clopidogrel Bisulfate 75 MG TAB PO SCH (11:12)
[2020-01-13] MEDS: Heparin 5,000 UNITS/ML VIAL SC SCH ×2 (11:12→20:47)
--- NOTE | 2020-01-13 11:24 | PRG ---
DATE OF SERVICE: 01/13/2020 SERVICE: Renal Medicine. SUBJECTIVE: Mr. Palafox is a 49-year-old male with ESRD and currently on peritoneal dialysis. He was diagnosed with peritonitis 3 weeks ago and has finished his course of ceftazidime/gentamicin, which was given intraperitoneally. During the current hospitalization, he was worked up for his peripheral vascular disease. He had an angiogram done by Dr. Olivo, but it was felt that the toe amputation done will not heal well due to poor circulation. The plan is for him to undergo right BKA. The patient is quite depressed about this. He was also offered to pull out the PD catheter, but he could not decide on this. This was offered to him due to the fact that he may have persistent peritonitis as suggested by continued elevation of the white cells on the peritoneal fluid. This morning, he voices no new complaints. He has no chest pain or shortness of breath. OBJECTIVE: VITAL SIGNS: Blood pressure 178/108, heart rate 80, temperature 98.9, O2 saturation 97%. GENERAL: The patient is awake, lethargic, flat affect. SKIN: Adequate turgor. HEENT: Slightly pale conjunctivae. Anicteric sclerae. No neck mass. No carotid bruits. No JVD. CHEST: No deformities. Lungs clear breath sounds. No wheezing. No crackles. HEART: Normal sinus rhythm. No murmurs, gallops, or rubs. ABDOMEN: Globular, soft, nontender. No masses. Positive for PD catheter. EXTREMITIES: No edema. Positive for cyanotic right toes. He has a PD catheter. MEDICATIONS: January 13, 2020, reviewed. LABORATORY DATA: January 13, 2020; white count 9.3, hemoglobin 9.9. Sodium 134, potassium 4.9, chloride 98, carbon dioxide 27, BUN 43, creatinine 8.22, calcium 8.2. ASSESSMENT AND PLAN: 1. End-stage renal disease, stable, continue current CCPD regimen. Ultrafiltration as tolerated. No changes will be made with the current peritoneal dialysis regimen. 2. Peritonitis. The patient has finished his course of ceftazidime and gentamicin. He has persistent leukocytosis on the PD fluid. The recommendation to have PD catheter was made to the patient. He is declining at the present time. 3. Anemia, borderline. Continue to observe. 4. Mild hyperkalemia, resolved with discontinuation of potassium supplementation. 5. Depression. Zoloft 50 mg tablet once a day was given. 6. Peripheral vascular disease. For plan right BKA. Job ID: [id number]
--- NOTE | 2020-01-13 12:49 | EKG ---
Test Reason : STAT Blood Pressure : / mmHG Vent. Rate : 079 BPM Atrial Rate : 079 BPM P-R Int : 158 ms QRS Dur : 096 ms QT Int : 430 ms P-R-T Axes : 047 -23 240 degrees QTc Int : 493 ms Normal sinus rhythm Possible Left atrial enlargement Prolonged QT Abnormal ECG When compared with ECG of 29-NOV-2019 09:23, ST now depressed in Inferior leads T wave inversion now evident in Inferior leads Confirmed by ANANDA MARTIN MD ([id number]) on 01/13/2020 12:49:07 PM Referred By: KHANH Confirmed By:ANANDA MARTIN MD
[2020-01-13] MEDS: Timolol 0.5% Ophth Soln 5 ml Bottle R EYE SCH (13:51)
--- NOTE | 2020-01-13 14:00 | PRG ---
DATE OF SERVICE: 01/12/2020 SUBJECTIVE: Mr. Palafox is a 49-year-old male, seen today at bedside with family present. The patient is status post 2 days amputation of second and third digits, right foot, and status post 1 day percutaneous transluminal angioplasty, right lower extremity. The patient is seen at the same time today as the wound care team is here to perform a wound VAC change. The patient is in no apparent distress, resting well. Vital signs stable. present in the room. OBJECTIVE AND CLINICAL FINDINGS: The wound VAC is well in place. Upon removal, the surgical amputation site shows nonviable open wound with cyanotic and dusky anjel-marginal borders to the wound. The base of the wound itself shows healthy metatarsal exposed second and third heads. However, there is minimal oozing of blood and minimal bleeding noted with a mixture of granular fibrotic tissue base. The fourth toe on the right foot has progressed to complete black-mummified gangrene at this time. The right great toe is showing early signs of cyanosis, dusky, purple discoloration, ischemic progression is noted at this time, mainly on the lateral side of the toe. The remaining forefoot is cyanotic coloration. Dr. Olivo performed a TELECASTING TECHNICIAN on the mid anterior tibial artery yesterday with findings showing complete occlusion at the ankle level of the peroneal and posterior tibial arteries. There was 80% occlusion of the mid anterior tibial arteries extending distally to the ankle level where the artery was occluded. ASSESSMENT: Status post x2 amputation, second and third digits, right foot; nonhealing foot; diabetic with peripheral vascular disease; neuropathy; end-stage renal disease; status post x1 day percutaneous transluminal angioplasty, right lower extremity. PLAN: The results of the TELECASTING TECHNICIAN performed by Dr. Anoop Olivo showed that he was only successful in opening up more bleeding at the level of the mid anterior tibial artery, right lower extremity. There was no increased blood flow further down distal to the ankle on the right lower extremity. Clinically, the patient's status post open wound amputation site does not show good healing potential with minimal bleeding noted, progression of gangrene on the 4th digit of right foot, and significant ischemic signs on the right great toe. The prognosis at this time is poor. The patient and family are hesitant on any type of proximal amputation. I consulted with the family and they will decide whether to proceed with further wound care or allow for a general surgery consultation for [id number] amputation, which is highly likely at this time. I discussed this with the hospitalist group and will re-consult with the family Tuesday mid morning to determine treatment plan. If there are any questions or concerns, please call me at [phone]. Job ID: [id number]
--- NOTE | 2020-01-13 20:15 | PDOC.HOSPP ---
- Subjective Encounter Date: 01/13/20 Encounter Time: 15:00 Subjective: Patient seen and examined for foot gangrene. Denies any pain, fever or chills. No nausea or vomiting. - Objective Vital Signs & Weight: Vital Signs (12 hours) Temp Pulse Resp BP Pulse Ox 01/13/20 19:45 98.1 F 80 18 146/67 H 94 L 01/13/20 16:00 99.5 F 80 16 146/67 H 94 L 01/13/20 12:00 98.7 F 79 14 171/84 H 93 L 01/13/20 08:51 98.9 F 16 178/108 H 97 Weight Admit Weight 200 lb Weight 200 lb I&O: 01/12/20 01/13/20 01/14/20 06:59 06:59 06:59 Intake Total 1150 700 Output Total 1368 134 Balance 1150 -668 -134 Result Diagrams: 01/13/20 05:23 01/13/20 05:23 Additional Labs: Accuchecks 01/13/20 01/13/20 01/12/20 16:30 11:27 20:16 POC Glucose 130 H 115 H 101 H Hospitalist ROS - Review of Systems Respiratory: denies: cough, dry, shortness of breath, hemoptysis, SOB with excertion, pleuritic pain, sputum, wheezing, other Cardiovascular: denies: chest pain, palpitations, orthopnea, paroxysmal noc. dyspnea, edema, light headedness, other - Medication Medications: Active Medications Generic Name Dose Route Start Last Admin Trade Name Freq PRN Reason Stop Dose Admin Acetaminophen 650 mg 01/08/20 18:10 01/09/20 00:09 Acetaminophen 325 Mg Tab PO 650 mg Q4H PRN Administration Headache/Fever/Mild Pain (1-3) Acetaminophen/Codeine Phosphate 2 tab 01/11/20 09:07 01/11/20 20:28 Acetaminophen/Codeine 30-300mg Tablet PO 2 tab Q4H PRN Administration Moderate Pain (4-6) Aspirin 81 mg 01/09/20 09:00 01/13/20 11:12 Aspirin 81 Mg Enteric Coated Tablet PO 81 mg DAILY BETI Administration Atorvastatin Calcium 40 mg 01/09/20 21:00 01/12/20 20:18 Atorvastatin Calcium 40 Mg Tab PO 40 mg HS BETI Administration Calcitriol 0.25 mcg 01/09/20 09:00 01/11/20 14:01 Calcitriol 0.25 Mcg Cap PO 0.25 mcg [id number] EBTI Administration Carvedilol 25 mg 01/09/20 09:00 01/13/20 08:57 Carvedilol 25 Mg Tab PO 25 mg BID BETI Administration Clopidogrel Bisulfate 75 mg 01/09/20 09:00 01/13/20 11:12 Clopidogrel Bisulfate 75 Mg Tab PO 75 mg DAILY BETI Administration Heparin Sodium (Porcine) 5,000 units 01/12/20 21:00 01/13/20 11:12 Heparin 5,000 Units/Ml Vial SC 5,000 units BID [facility] Administration Hydralazine HCl 50 mg 01/09/20 09:00 01/13/20 17:20 Hydralazine 25 Mg Tab PO 50 mg TID [facility] Administration Isosorbide Dinitrate 20 mg 01/09/20 09:00 01/13/20 17:20 Isosorbide Dinitrate 20 Mg Tab PO 20 mg TID [facility] Administration Lanthanum Carbonate 500 mg 01/09/20 08:00 01/13/20 18:05 Lanthanum Carbonate 500 Mg Tablet PO Not Given [facility]ID[facility] Losartan Potassium 100 mg 01/09/20 09:00 01/13/20 08:56 Losartan 25 Mg Tab PO 100 mg DAILY [facility] Administration Saccharomyces Boulardii 250 mg 01/13/20 09:00 01/13/20 11:12 Saccharomyces Boulardii 250 Mg Cap PO 250 mg DAILY [facility] Administration Senna/Docusate Sodium 1 tab 01/12/20 21:00 01/13/20 08:56 Senokot S 8.6-50 Mg Tab PO Not Given BID [facility] Sodium Chloride 10 ml 01/08/20 18:10 01/13/20 17:21 Flush - Normal Saline 10 Ml Syringe IVF 10 ml Q12HR PRN Administration Saline Flush Timolol Maleate 1 drop 01/09/20 09:00 01/13/20 13:51 Timolol 0.5% Ophth Soln 5 Ml Bottle R EYE Not Given QAM [facility] - Exam General Appearance: NAD Neck: supple, no JVD Heart: RRR, no gallops, no rubs Respiratory: no rales, no ronchi, normal chest expansion Gastrointestinal: soft, non-tender, normal bowel sounds Extremities: no cyanosis Extremities - other findings: Right foot dressing with wound VAC present Hosp A/P (1) Gangrene of toe of right foot Code(s): I96 - GANGRENE, NOT ELSEWHERE CLASSIFIED Status: Acute (2) Diabetes mellitus, type II Status: Chronic Qualifiers: Diabetes mellitus complication detail: with diabetic retinopathy (3) ESRD on peritoneal dialysis Code(s): N18.6 - END STAGE RENAL DISEASE; Z99.2 - DEPENDENCE ON RENAL DIALYSIS Status: Chronic (4) Hyperlipidemia Code(s): E78.5 - HYPERLIPIDEMIA, UNSPECIFIED Status: Chronic (5) Hypertension Code(s): I10 - ESSENTIAL (PRIMARY) HYPERTENSION Status: Chronic (6) Peripheral arterial disease Code(s): I73.9 - PERIPHERAL VASCULAR DISEASE, UNSPECIFIED Status: Chronic (7) Hyperkalemia Code(s): E87.5 - HYPERKALEMIA Status: Resolved (8) Peritonitis associated with peritoneal dialysis Status: Chronic (9) Other issues per previous notes - Plan 01/12 Continue wound care. Patient is deciding on right below-knee amputationpatient will consult with cardiovascular surgeon at outside facility tomorrow morning. Continue dialysis per nephrology. Continue antiplatelet agent. I discussed with Dr. Lozada who recommended levofloxacin to 50 mg daily. Continue other hypertensive medication as above. A.m. labs. Potassium normal today 01/11 Continue wound care. Discontinue potassium supplementation due to hyperkalemia. Continue aspirin with Plavix. Patient declined a on possible right below-knee amputation. Continue IV antibiotics with peritoneal dialysis per nephrology. Continue wound care. Recheck labs in a.m. Treat constipation.
[2020-01-13] MEDS: Atorvastatin Calcium 40 MG TAB PO SCH (20:46)
[2020-01-14] MEDS: Calcitriol 0.25 MCG CAP PO SCH (08:46)
[2020-01-14] MEDS: hydrALAZINE 25 MG TAB PO SCH ×3 (08:46→20:29)
[2020-01-14] MEDS: Senokot S 8.6-50 MG TAB PO SCH ×2 (08:46→20:37)
[2020-01-14] MEDS: Aspirin 81 mg Enteric Coated Tablet PO SCH (08:46)
[2020-01-14] MEDS: Losartan 25 MG TAB PO SCH (08:48)
[2020-01-14] MEDS: Carvedilol 25 MG TAB PO SCH ×2 (08:48→20:29)
[2020-01-14] MEDS: Saccharomyces boulardii 250 MG CAP PO SCH (08:48)
[2020-01-14] MEDS: Isosorbide Dinitrate 20 MG TAB PO SCH ×3 (08:49→20:29)
[2020-01-14] MEDS: Clopidogrel Bisulfate 75 MG TAB PO SCH (08:49)
[2020-01-14] MEDS: Heparin 5,000 UNITS/ML VIAL SC SCH ×2 (08:50→20:29)
[2020-01-14] MEDS: Lanthanum Carbonate 500 mg Tablet PO SCH ×3 (08:50→17:23)
[2020-01-14] MEDS: Timolol 0.5% Ophth Soln 5 ml Bottle R EYE SCH (08:56)
--- NOTE | 2020-01-14 09:17 | PRG ---
DATE OF SERVICE: 01/14/2020 SERVICE: Renal Medicine. SUBJECTIVE: Mr. Palafox is a 49-year-old male with ESRD from diabetic nephropathy. He has also had a course of peritonitis and has been treated with 3-week course of ceftazidime and gentamicin-done intraperitoneally. PD fluid looks clear. He also has significant peripheral vascular disease. Consideration for amputation for the right leg is being done. He underwent amputation of the right second and third toes in this hospitalization. He voices no new complaints. No chest pain or shortness of breath. OBJECTIVE: VITAL SIGNS: Blood pressure 169/79, heart rate 77, respiratory rate 16, temperature 98.9, O2 saturation 97%. GENERAL: The patient is awake, alert, positive for a flat affect. SKIN: Adequate turgor. HEENT: Pinkish conjunctivae. Anicteric sclerae. No neck mass. No carotid bruits. No JVD. CHEST: No deformities. LUNGS: Clear breath sounds. HEART: Normal sinus rhythm. No murmurs, no gallops, no rubs. ABDOMEN: Globular, soft, nontender. No masses. Positive for PD catheter. EXTREMITIES: No edema. No deformities. Right foot dressing noted. MEDICATIONS: Of January 14, 2020, were reviewed. LABORATORY DATA: Laboratories of January 13, 2020: White count 9.2, hemoglobin 9.9. Sodium 134, potassium 4.9, chloride 98, carbon dioxide 27, BUN 43, creatinine 8.22, calcium 8.2. On January 14, 2020, glucose 173. ASSESSMENT AND PLAN: 1. End-stage renal disease, stable. Continue current CCPD regimen. Yesterday, we had to use 4.25% PD solution alternating with 1.5% PD solution due to unavailability of the 2.5% PD solution. He tolerated said treatment. We were able to remove 1.6 L of fluid last night. 2. Peripheral vascular disease - consideration for right BKA. 3. Borderline anemia. Continue to observe. 4. Status post peritonitis. PD fluid is clear. The patient is clinically asymptomatic. We will recheck CBC, basic metabolics in a.m. Job ID: [id number]
--- NOTE | 2020-01-14 09:37 | PRG ---
DATE OF SERVICE: 01/14/2020 SUBJECTIVE: Mr. Palafox' status is unchanged. Decision on BKA is yet to be determined. No new changes noted over the weekend. OBJECTIVE: VITAL SIGNS: Blood pressure 169/79, pulse 77, temperature 98.9. LUNGS: Clear to auscultation. HEART: Regular rate and rhythm. ABDOMEN: Soft, nontender, nondistended. EXTREMITIES: No significant changes. IMPRESSION: 1. Severe peripheral vascular disease. 2. Recent amputation of the second and third digits on the right foot with continuous gangrenous large right toe. 3. Diffuse severe small vessel coronary artery disease. 4. Ischemic cardiomyopathy. 5. End-stage renal disease. RECOMMENDATIONS: 1. I had a long discussion with Mr. Palafox as well as his today. LABORATORY PHLEBOTOMIST performed several months ago to the tibioperoneal trunk, appeared excellent on recent lower extremity runoff. He did have a lesion noted in the mid anterior tibial region that was felt to be significant followed by complete occlusion of the distal anterior tibial artery near the ankle. The peroneal and tibioperoneal trunk arteries were occluded in the long areas. 2. There was an attempt at traversing the occlusion near the ankle with a Victory wire. This was unsuccessful after multiple attempts. It was then decided to proceed with LABORATORY PHLEBOTOMIST only of the mid anterior tibial trunk. 3. Unfortunately, the patient continues to have hypoxia in addition to the low blood flow noted to the lower extremity and would likely need further amputation. He would like to discuss this further with his side seam envelope machine operator at [facility]. I would certainly be okay from my standpoint. I did state that if there was too long of a delay, they could risk sepsis and worsening complications. 4. We will follow peripherally. Otherwise, I have no further recommendations. Job ID: [id number]
--- NOTE | 2020-01-14 18:02 | PDOC.HOSPP ---
- Subjective Encounter Date: 01/14/20 Encounter Time: 17:00 Subjective: Patient seen and examined for follow-up right lower extremity infection. Pain controlled. No new fever, chills or shortness of breath reported. No nausea or vomiting - Objective Vital Signs & Weight: Vital Signs (12 hours) Temp Pulse Resp BP Pulse Ox 01/14/20 16:00 98.4 F 80 14 168/88 H 96 01/14/20 12:00 98.1 F 75 16 149/80 H 95 01/14/20 07:37 98.9 F 77 16 169/79 H 97 Weight Admit Weight 200 lb Weight 200 lb I&O: 01/13/20 01/14/20 01/15/20 06:59 06:59 06:59 Intake Total 700 Output Total [phone] [facility] -[phone] Result Diagrams: 01/13/20 05:23 01/13/20 05:23 Additional Labs: Accuchecks 01/14/20 01/14/20 01/14/20 16:44 12:22 05:13 POC Glucose 106 H 119 H 173 H 01/13/20 01/13/20 01/12/20 21:01 04:24 15:53 POC Glucose 175 H 162 H 97 01/12/20 11:42 POC Glucose 125 H Hospitalist ROS - Review of Systems Respiratory: denies: cough, dry, shortness of breath, hemoptysis, SOB with excertion, pleuritic pain, sputum, wheezing, other Cardiovascular: denies: chest pain, palpitations, orthopnea, paroxysmal noc. dyspnea, edema, light headedness, other - Medication Medications: Active Medications Generic Name Dose Route Start Last Admin Trade Name Freq PRN Reason Stop Dose Admin Acetaminophen 650 mg 01/08/20 18:10 01/09/20 00:09 Acetaminophen 325 Mg Tab PO 650 mg Q4H PRN Administration Headache/Fever/Mild Pain (1-3) Acetaminophen/Codeine Phosphate 2 tab 01/11/20 09:07 01/11/20 20:28 Acetaminophen/Codeine 30-300mg Tablet PO 2 tab Q4H PRN Administration Moderate Pain (4-6) Aspirin 81 mg 01/09/20 09:00 01/14/20 08:46 Aspirin 81 Mg Enteric Coated Tablet PO 81 mg DAILY BETI Administration Atorvastatin Calcium 40 mg 01/09/20 21:00 01/13/20 20:46 Atorvastatin Calcium 40 Mg Tab PO 40 mg HS BTEI Administration Calcitriol 0.25 mcg 01/09/20 09:00 01/14/20 08:46 Calcitriol 0.25 Mcg Cap PO 0.25 mcg [id number] BETI Administration Carvedilol 25 mg 01/09/20 09:00 01/14/20 08:48 Carvedilol 25 Mg Tab PO 25 mg BID BETI Administration Clopidogrel Bisulfate 75 mg 01/09/20 09:00 01/14/20 08:49 Clopidogrel Bisulfate 75 Mg Tab PO 75 mg DAILY BETI Administration Heparin Sodium (Porcine) 5,000 units 01/12/20 21:00 01/14/20 08:50 Heparin 5,000 Units/Ml Vial SC 5,000 units BID BETI Administration Hydralazine HCl 50 mg 01/09/20 09:00 01/14/20 16:50 Hydralazine 25 Mg Tab PO 50 mg TID BETI Administration Isosorbide Dinitrate 20 mg 01/09/20 09:00 01/14/20 16:50 Isosorbide Dinitrate 20 Mg Tab PO 20 mg TID [facility]CLUDES [facility] Administration Lanthanum Carbonate 500 mg 01/09/20 08:00 01/14/20 17:23 Lanthanum Carbonate 500 Mg Tablet PO Not Given TID-WM COUNT INCLUDES THE [facility] Levofloxacin 250 mg 01/14/20 06:00 01/14/20 06:02 Levofloxacin 250 Mg Tab PO 250 mg 0600 BETI Administration Losartan Potassium 100 mg 01/09/20 09:00 01/14/20 08:48 Losartan 25 Mg Tab PO 100 mg DAILY [facility]CLUDES [facility] Administration Saccharomyces Boulardii 250 mg 01/13/20 09:00 01/14/20 08:48 Saccharomyces Boulardii 250 Mg Cap PO 250 mg DAILY [facility]CLUDES THE [facility] Administration Senna/Docusate Sodium 1 tab 01/12/20 21:00 01/14/20 08:46 Senokot S 8.6-50 Mg Tab PO Not Given BID [facility]CLUDES [facility] Sertraline HCl 50 mg 01/14/20 09:00 01/14/20 08:47 Sertraline Hcl 100 Mg Tab PO 50 mg DAILY BETI Administration Sodium Chloride 10 ml 01/08/20 18:10 01/13/20 17:21 Flush - Normal Saline 10 Ml Syringe IVF 10 ml Q12HR PRN Administration Saline Flush Timolol Maleate 1 drop 01/09/20 09:00 01/14/20 08:56 Timolol 0.5% Ophth Soln 5 Ml Bottle R EYE Not Given QAM BETI - Exam General Appearance: NAD Neck: supple, no JVD Respiratory: normal chest expansion Psychiatric: normal affect, A&O x 3 Hosp A/P (1) Gangrene of toe of right foot Code(s): I96 - GANGRENE, NOT ELSEWHERE CLASSIFIED Status: Acute (2) Diabetes mellitus, type II Status: Chronic Qualifiers: Diabetes mellitus complication detail: with diabetic retinopathy (3) ESRD on peritoneal dialysis Code(s): N18.6 - END STAGE RENAL DISEASE; Z99.2 - DEPENDENCE ON RENAL DIALYSIS Status: Chronic (4) Hyperlipidemia Code(s): E78.5 - HYPERLIPIDEMIA, UNSPECIFIED Status: Chronic (5) Hypertension Code(s): I10 - ESSENTIAL (PRIMARY) HYPERTENSION Status: Chronic (6) Peripheral arterial disease Code(s): I73.9 - PERIPHERAL VASCULAR DISEASE, UNSPECIFIED Status: Chronic (7) Hyperkalemia Code(s): E87.5 - HYPERKALEMIA Status: Resolved (8) Peritonitis associated with peritoneal dialysis Status: Chronic (9) Other issues per previous notes - Plan 01/13 Cont PO Levaquin with wound care. Dialysis per Nephrology. Continue antiplatelet, carvedilol, hydralazine, isosorbide dinitrate, losartan and other medications as above 01/12 Continue wound care. Patient is deciding on right below-knee amputationpatient will consult with cardiovascular surgeon at outside facility tomorrow morning. Continue dialysis per nephrology. Continue antiplatelet agent. I discussed with Dr. Lozada who recommended levofloxacin to 50 mg daily. Continue other hypertensive medication as above. A.m. labs. Potassium normal today 01/11 Continue wound care. Discontinue potassium supplementation due to hyperkalemia. Continue aspirin with Plavix. Patient declined a on possible right below-knee amputation. Continue IV antibiotics with peritoneal dialysis per nephrology. Continue wound care. Recheck labs in a.m. Treat constipation.
[2020-01-14] MEDS: Atorvastatin Calcium 40 MG TAB PO SCH (20:29)
[2020-01-15 05:45] LABS: #Eosinphils 0.3 thou/uL (0.0-0.7); #Lymphocytes 0.8 thou/uL (1.20-3.40); #Neutrophils 7.1 thou/uL (1.40-6.50); %Eosinophils 2.9 % (0.0-10.0); %Lymphocytes 9.2 % (21.0-51.0); %Monocytes 10.5 % (0.0-10.0); %Neutrophils 77.5 % (42.0-75.0); Mean Corpuscular HGB CONC 31.3 g/dL (32.0-36.0); Mean Corpuscular Hemoglobin 29.2 pg (27.0-31.0); Mean Corpuscular Volume 93.3 fL (78.0-98.0); Mean Platelet Volume 7.9 fL (7.4-10.4); Platelet Count 190 thou/uL (130-400); RBC Distribution Width 14.9 % (11.5-14.5); Red Blood Cell (RBC) Count 3.42 mill/uL (4.70-6.10); White Blood Cell (WBC) Count 9.1 thou/uL (4.8-10.8)
[2020-01-15 06:02] LABS: Anion Gap 15 mmol/L (10-20); BUN (Urea Nitrogen) 44 mg/dL (8.9-20.6); Calc. Creatinine Clearance 13 mL/min (70-130); Calcium 7.2 mg/dL (7.8-10.44); Carbon Dioxide 27 mmol/L (22-29); Chloride 98 mmol/L (98-107); Estimated GFR-MDRD 7; Glucose 157 mg/dL (70-105); Sodium 135 mmol/L (136-145)
[2020-01-15 07:37] VITALS: BP 169/84; TEMP 99
[2020-01-15] MEDS: Senokot S 8.6-50 MG TAB PO SCH (09:11)
[2020-01-15] MEDS: hydrALAZINE 25 MG TAB PO SCH (09:11)
[2020-01-15] MEDS: Isosorbide Dinitrate 20 MG TAB PO SCH (09:11)
[2020-01-15] MEDS: Aspirin 81 mg Enteric Coated Tablet PO SCH (09:11)
[2020-01-15] MEDS: Clopidogrel Bisulfate 75 MG TAB PO SCH (09:11)
[2020-01-15] MEDS: Losartan 25 MG TAB PO SCH (09:11)
[2020-01-15] MEDS: Timolol 0.5% Ophth Soln 5 ml Bottle R EYE SCH (09:11)
[2020-01-15] MEDS: Lanthanum Carbonate 500 mg Tablet PO SCH (09:12)
[2020-01-15] MEDS: Carvedilol 25 MG TAB PO SCH (09:12)
[2020-01-15] MEDS: Saccharomyces boulardii 250 MG CAP PO SCH (09:12)
[2020-01-15] MEDS: Heparin 5,000 UNITS/ML VIAL SC SCH (09:15)
--- NOTE | 2020-01-15 09:27 | PRG ---
DATE OF SERVICE: 01/15/2020 SUBJECTIVE: Mr. Palafox is a 49-year-old male, being followed by the Renal Service for his ESRD. He is currently on CCPD and tolerating said treatment. He has also been diagnosed with peritonitis and has received a 3-week course of ceftazidime as well as gentamicin. PD fluid is clear. Abdominal exam shows no tenderness. He, however, has had persistent elevated cell count with this PD fluid. The last PD fluid examinations #24, had a white count of 204. However, on Gram stain, no bacteria were noted. Clinically, he is asymptomatic. He is aware that eventually he may need to have his PD catheter pulled if he does not completely resolve this infection or he has a recurrent infection. He was somewhat hesitant to do this procedure due to the fact that he may be undergoing a right BKA. He has decided to place it on hold since he is going to get a second opinion in [place]. No other complaints today. No chest pain or shortness of breath. OBJECTIVE: VITAL SIGNS: Blood pressure 169/84, heart rate 77, respiratory rate 17, temperature 99, O2 saturation 97%. GENERAL: The patient is awake, alert, comfortable, not in overt distress. SKIN: Adequate turgor. HEENT: Pinkish conjunctivae. Anicteric sclerae. No neck mass. No carotid bruits. No JVD. CHEST: No deformities. LUNGS: Clear breath sounds. HEART: Normal sinus rhythm. No murmurs. No gallops. No rubs. ABDOMEN: Globular, soft, nontender. No masses. EXTREMITIES: No edema. No deformities. Positive for right foot dressing with some cyanosis on the toes. MEDICATIONS: Medications of January 15, 2020, were reviewed. LABORATORY DATA: Laboratories of January 15, 2020, showed sodium 135, potassium 5, chloride 98, carbon dioxide 27, BUN 44, creatinine 8.65, calcium 7.2. White count 9.1, hemoglobin 10. ASSESSMENT AND PLAN: 1. Peripheral vascular disease/status post right toe amputation - for second opinion in [place] regarding the possibility of him undergoing a right [id number] amputation. 2. Peritonitis, clinically much improved. Status post 3-week course of IV ceftazidime and IV gentamicin. 3. Depression - the patient was recently started on Zoloft. Agree with current management. Job ID: [id number]
[2020-01-15 13:14] LABS: Fungus Stain Final report (.)
--- NOTE | 2020-01-15 20:34 | DIS ---
DATE OF ADMISSION: 01/08/2020 DATE OF DISCHARGE: 01/15/2020 DISCHARGE DISPOSITION: Home. FOLLOWUP: 1. Follow up with primary j2ee java developer in [place] on this Tuesday. 2. Follow up with primary care physician in 1 week. 3. Follow up with Podiatry as scheduled. ALLERGIES: NO KNOWN DRUG ALLERGIES. DISCHARGE MEDICATIONS: Levaquin 250 mg daily. All other home medications including aspirin and Plavix were left unchanged. The patient was evaluated on the day of discharge. Denies any new complaints. BRIEF HOSPITAL COURSE: The patient is a 49-year-old male with end-stage renal disease, on peritoneal dialysis; diabetes mellitus type 2; coronary artery disease; hypertension; and peripheral vascular disease, presented to the hospital from [facility]iatry [facility] due to worsening right second and third toe gangrene. Please refer to the history and physical for further details. The patient was admitted to the hospital with above diagnosis. He was started on broad-spectrum antibiotics. Please note that the patient was recently diagnosed with peritoneal dialysis catheter associated peritonitis and was on antibiotics on admission, which he completed during this hospitalization. On 09 January 2020, the patient underwent amputation of the second and the third digit of the right foot by Podiatry. He was evaluated by General Surgery, Dr. Cisneros, as well as Cardiovascular, Dr. Olivo. On 11 January 2020, the patient underwent right lower extremity angiogram with successful angioplasty of the mid anterior tibial artery, which had 80% stenosis. He was recommended to undergo right below-knee amputation by Podiatry as well as Vascular. However, the patient decided to follow up with his primary Cardiology and Cardiovascular in [place] later this week to make a final decision on this. His wound culture was positive for Citrobacter as well as Pseudomonas sensitive to Levaquin. His peritoneal fluid cultures were negative. He has been cleared by consultants for discharge. He understands the risk of life-threatening sepsis if he does not make a decision as soon as possible regarding amputation. This was also reinforced by Cardiology, Dr. Olivo. FINAL DIAGNOSES: 1. Severe peripheral vascular disease with right second and third toe gangrene, status post amputation as well as angioplasty of the mid anterior tibial artery. 2. Diabetes mellitus type 2 with diabetic nephropathy as well as retinopathy. 3. Hyperlipidemia. 4. End-stage renal disease, on peritoneal dialysis with recent peritoneal dialysis catheter associated peritonitis. 5. Hypertension. 6. Hyperkalemia. Potassium supplementation was discontinued. 7. Diabetic neuropathy. 8. Coronary artery disease. 9. Ischemic cardiomyopathy. 10. Secondary hyperparathyroidism. 11. Glaucoma. 12. Chronic anemia, suspected due to renal disease. 13. Hyponatremia. 14. Hypomagnesemia, replaced. TEST PENDING AT DISCHARGE: Ascitic fluid, fungal culture. Primary care physician advised to follow. The patient and the family understand the above plan of care. Job ID: [id number]
== END 2020-01-15 13:08 | disposition home health service (06) | DRG 239 ==
LOC: T4-B 17:23
PROVIDERS: ADMIT Internal Medicine; ATTEND Internal Medicine
PROC: 0Y6M0ZB Detachment at Right Foot, Partial 2nd Ray, Open Approach (ICD-10-PCS; principal; 2020-01-09)
PROC: 0Y6M0ZC Detachment at Right Foot, Partial 3rd Ray, Open Approach (ICD-10-PCS; 2020-01-09)
PROC: 047Y3ZZ Dilation of Lower Artery, Percutaneous Approach (ICD-10-PCS; 2020-01-11)
PROC: 047Q3ZZ Dilation of Left Anterior Tibial Artery, Percutaneous Approach (ICD-10-PCS; 2020-01-11)
PROC: B41D1ZZ Fluoroscopy of Aorta and Bilateral Lower Extremity Arteries using Low Osmolar Contrast (ICD-10-PCS; 2020-01-11)
DX: E11.52 Type 2 diabetes mellitus with diabetic peripheral angiopathy with gangrene (principal); N18.6 End stage renal disease; K65.8 Other peritonitis; I96 Gangrene, not elsewhere classified; I12.0 Hypertensive chronic kidney disease with stage 5 chronic kidney disease or end stage renal disease; Z20.828 Contact with and (suspected) exposure to other viral communicable diseases; H33.8 Other retinal detachments; N25.81 Secondary hyperparathyroidism of renal origin; E87.1 Hypo-osmolality and hyponatremia; E11.22 Type 2 diabetes mellitus with diabetic chronic kidney disease; E11.319 Type 2 diabetes mellitus with unspecified diabetic retinopathy without macular edema; D63.1 Anemia in chronic kidney disease; E11.40 Type 2 diabetes mellitus with diabetic neuropathy, unspecified; E11.51 Type 2 diabetes mellitus with diabetic peripheral angiopathy without gangrene; F32.9 Major depressive disorder, single episode, unspecified; E83.42 Hypomagnesemia; E87.5 Hyperkalemia; H40.9 Unspecified glaucoma; I25.10 Atherosclerotic heart disease of native coronary artery without angina pectoris; I25.5 Ischemic cardiomyopathy; E78.5 Hyperlipidemia, unspecified; Z79.4 Long term (current) use of insulin; Z99.2 Dependence on renal dialysis
CPT/HCPCS: 36415; 36416; 37228; 71045; 76942; 80048; 80053; 80170; 83605; 83735; 85025; 85060; 85347; 85610; 85652; 85730; 87070; 87077; 87102; 87116; 87186; 87205; 87206; 87635; 88305; 89051; 90945; 93005; 93010; 93970; C1887; G0257; J0360; J1644; J2001; J2250; J2405; J2704; J3010; J3475; Q9967; U0003